=== PATIENT | male | born 1970 | race Asian ===

== ENCOUNTER 2017-03-31 07:51 | Inpatient (IN) | payer MEDICAID, OTHER ==
[~2017-03-31] VITALS: Ht 170.2 cm; Wt 71.0 kg
[~2017-03-31 07:51] MED LIST: RISP.5 PO
[2017-03-31 08:29] LABS: HEMATOCRIT 53.4 % (41-53); HEMOGLOBIN 18.1 g/dL (13.5-17.5); LYMPHOCYTES # (AUTO) 1.6 K/uL (1.0-4.8); LYMPHOCYTES % (AUTO) 9.3 % (22.0-44.0); MEAN CORPUSCULAR HEMOGLOBIN 30.8 pg (26.0-34.0); MEAN CORPUSCULAR VOLUME 91 fL (80-100); MONOCYTES # (AUTO) 0.6 K/uL (0.1-1.0); MONOCYTES % (AUTO) 3.7 % (2.0-9.0); NEUTROPHILS # (AUTO) 14.7 K/uL (1.8-7.7); PLATELET COUNT (AUTO) 276 K/uL (150-450); RED BLOOD CELL COUNT(AUTO) 5.88 MIL/uL (4.50-5.90); RED CELL DISTRIBUTION WIDTH 13.7 % (11.5-14.5); WHITE BLOOD COUNT (AUTO) 17.1 K/uL (4.5-11.0)
[2017-03-31 08:41] LABS: ANION GAP 13 mmol/L (8-16); CALCIUM, TOTAL 9.5 mg/dL (8.8-10.5); CARBON DIOXIDE 27 mmol/L (22-29); CHLORIDE 97 mmol/L (98-107); CREATININE 1.97 mg/dL (0.60-1.30); GLOMERULAR FILTR. RATE CALC 37 mL/min (>60); POTASSIUM 3.2 mmol/L (3.5-5.1); SODIUM SERUM 137 mmol/L (136-145); UREA NITROGEN, BLOOD 13 mg/dL (7-18)
[2017-03-31 08:47] LABS: ALANINE AMINOTRANSFERASE 56 U/L (12-78); ALBUMIN 4.5 g/dL (3.4-5.0); ASPARTATE AMINOTRANSFERASE 100 U/L (15-37); TOTAL PROTEIN, SERUM 8.2 g/dL (6.4-8.2)
[2017-03-31] MEDS ORDERED: HydrOXYzine PAMOATE 50 MG CAPSULE PO ONE (09:15)
[2017-03-31] MEDS ORDERED: LORazepam 2 MG TABLET PO ONE (11:30)
[2017-03-31] MEDS ORDERED: ACETAMINOPHEN 325 MG TABLET PO ONE (11:30)
[2017-03-31] MEDS ORDERED: ZOLPIDEM TARTRATE 10 MG TABLET PO PRN (12:00)
[2017-03-31 14:03] VITALS: BP 103/67
[2017-03-31] MEDS ORDERED: HALOPERIDOL LACTATE 5 MG/ML VIAL ONE (19:58)
[2017-03-31] MEDS ORDERED: DiphenhydrAMINE HCL 50 MG/ML VIAL ONE (19:58)
[2017-03-31] MEDS ORDERED: LORazepam 2 MG/ML VIAL ONE (19:58)
[2017-03-31] MEDS ORDERED: LORazepam 2 MG/ML VIAL IM ONE (20:00)
[2017-03-31] MEDS ORDERED: DiphenhydrAMINE HCL 50 MG/ML VIAL IM ONE (20:00)
[2017-03-31] MEDS ORDERED: HALOPERIDOL LACTATE 5 MG/ML VIAL IM ONE (20:00)
[2017-03-31] MEDS: RisperiDONE 0.5 MG TABLET PO SCH (21:00)
[2017-04-01] MEDS: HALOPERIDOL 5 MG TABLET PO PRN ×2 (08:08→12:25)
[2017-04-01] MEDS: RisperiDONE 0.5 MG TABLET PO SCH (08:08)
[2017-04-01] MEDS: LORazepam 2 MG TABLET PO PRN ×2 (08:08→12:25)
[2017-04-01] MEDS ORDERED: POTASSIUM CHLORIDE 20 MEQ ER TABLET PO ONE (12:15)
[2017-04-01 13:17] VITALS: BP 129/76
[2017-04-01] MEDS: RisperiDONE 1 MG TABLET PO SCH (16:23)
[2017-04-01] MEDS ORDERED: RisperiDONE 0.5 MG TABLET PO SCH (17:00)
[2017-04-01 17:49] VITALS: BP 131/76
[2017-04-02] MEDS: RisperiDONE 1 MG TABLET PO SCH ×2 (08:35→16:16)
[2017-04-02 09:39] VITALS: BP 132/78
[2017-04-02 16:38] VITALS: BP 133/98
[2017-04-02] MEDS ORDERED: BENZOCAINE 10% 7 GM GEL TP PRN (18:30)
[2017-04-03] MEDS: RisperiDONE 1 MG TABLET PO SCH ×2 (08:23→16:19)
[2017-04-03 10:53] VITALS: BP 116/79
[2017-04-03 16:34] VITALS: BP 132/60
[2017-04-04 03:38] VITALS: BP 130/72
[2017-04-04] MEDS: LORazepam 2 MG TABLET PO PRN (03:38)
[2017-04-04] MEDS: RisperiDONE 1 MG TABLET PO SCH (08:09)
[2017-04-04 08:10] VITALS: BP 133/77
[2017-04-04] MEDS ORDERED: RISP1 PO (13:37)
== END 2017-04-04 14:50 | disposition home or self-care (01) | DRG 751 ==
LOC: EMS 07:54 → 3EI 12:33 → 3EC 21:05
PROVIDERS: ADMIT Psychiatry & Neurology Psychiatry; ATTEND Psychiatry & Neurology Psychiatry
DX: F29 Unspecified psychosis not due to a substance or known physiological condition (principal); F15.20 Other stimulant dependence, uncomplicated; Z59.0 Homelessness; S05.11XA Contusion of eyeball and orbital tissues, right eye, initial encounter; X83.8XXA Intentional self-harm by other specified means, initial encounter; Y92.89 Other specified places as the place of occurrence of the external cause; D72.829 Elevated white blood cell count, unspecified; R00.0 Tachycardia, unspecified; N28.9 Disorder of kidney and ureter, unspecified
CPT/HCPCS: 93005; 99285; G0480; J1200; J1630; J2060

== ENCOUNTER 2017-06-21 12:16 | Emergency (ER) | payer MEDICAID, OTHER ==
[~2017-06-21] VITALS: Ht 170.2 cm; Wt 76.4 kg
[~2017-06-21 12:16] MED LIST changes: -RISP.5 PO; +RISP1 PO
[2017-06-21 14:00] LABS: BASOPHILS % (AUTO) 0.8 % (0.0-2.0); EOSINOPHILS % (AUTO) 1.7 % (1.0-6.0); HEMATOCRIT 49.6 % (41-53); HEMOGLOBIN 16.8 g/dL (13.5-17.5); LYMPHOCYTES # (AUTO) 2.2 K/uL (1.0-4.8); LYMPHOCYTES % (AUTO) 24.9 % (22.0-44.0); MEAN CORPUSCULAR HEMOGLOBIN 31.4 pg (26.0-34.0); MEAN CORPUSCULAR HGB CONC 33.9 G/dL (31.0-37.0); MEAN CORPUSCULAR VOLUME 93 fL (80-100); MONOCYTES # (AUTO) 0.7 K/uL (0.1-1.0); MONOCYTES % (AUTO) 8.4 % (2.0-9.0); NEUTROPHILS # (AUTO) 5.6 K/uL (1.8-7.7); NEUTROPHILS % (AUTO) 64.2 % (40.0-70.0); PLATELET COUNT (AUTO) 245 K/uL (150-450); RED BLOOD CELL COUNT(AUTO) 5.35 MIL/uL (4.50-5.90); RED CELL DISTRIBUTION WIDTH 13.5 % (11.5-14.5); WHITE BLOOD COUNT (AUTO) 8.8 K/uL (4.5-11.0)
[2017-06-21 14:08] LABS: ANION GAP 9 mmol/L (8-16); CALCIUM, TOTAL 9.2 mg/dL (8.8-10.5); CARBON DIOXIDE 29 mmol/L (22-29); CHLORIDE 102 mmol/L (98-107); CREATININE 0.94 mg/dL (0.60-1.30); GLOMERULAR FILTR. RATE CALC > 60 mL/min (>60); POTASSIUM 4.1 mmol/L (3.5-5.1); SODIUM SERUM 140 mmol/L (136-145); UREA NITROGEN, BLOOD 5 mg/dL (7-18)
[2017-06-21 14:15] LABS: ALANINE AMINOTRANSFERASE 98 U/L (12-78); ALBUMIN 3.7 g/dL (3.4-5.0); ASPARTATE AMINOTRANSFERASE 105 U/L (15-37); BILIRUBIN,TOTAL 1.3 mg/dL (0.1-1.0); TOTAL PROTEIN, SERUM 7.1 g/dL (6.4-8.2)
[2017-06-21 14:56] VITALS: BP 119/88
== END 2017-06-21 14:57 | disposition home or self-care (01) ==
LOC: EMS 12:18
DX: F20.9 Schizophrenia, unspecified (principal); F17.210 Nicotine dependence, cigarettes, uncomplicated; F32.9 Major depressive disorder, single episode, unspecified; Z86.59 Personal history of other mental and behavioral disorders
CPT/HCPCS: 36415; 80053; 80307; 85025; 99284; 99406; G0480

== ENCOUNTER 2017-07-10 10:16 | Emergency (ER) | payer OTHER ==
[~2017-07-10] VITALS: Ht 170.2 cm; Wt 75.0 kg
[2017-07-10] MEDS ORDERED: LISI-622 PO (10:28)
[2017-07-10] MEDS ORDERED: QUET300T18 PO (10:28)
[2017-07-10] MEDS ORDERED: [UNRECOGNIZED DRUG - OTHER] PO (10:28)
[2017-07-10] MEDS ORDERED: antidepressant PO (10:28)
[2017-07-10 10:47] LABS: BASOPHILS % (AUTO) 0.1 % (0.0-2.0); EOSINOPHILS % (AUTO) 3.8 % (1.0-6.0); HEMATOCRIT 47.2 % (41-53); HEMOGLOBIN 16.3 g/dL (13.5-17.5); LYMPHOCYTES # (AUTO) 2.6 K/uL (1.0-4.8); LYMPHOCYTES % (AUTO) 27.9 % (22.0-44.0); MEAN CORPUSCULAR HEMOGLOBIN 31.7 pg (26.0-34.0); MEAN CORPUSCULAR HGB CONC 34.6 G/dL (31.0-37.0); MEAN CORPUSCULAR VOLUME 92 fL (80-100); MONOCYTES # (AUTO) 0.5 K/uL (0.1-1.0); MONOCYTES % (AUTO) 5.6 % (2.0-9.0); NEUTROPHILS # (AUTO) 5.9 K/uL (1.8-7.7); NEUTROPHILS % (AUTO) 62.6 % (40.0-70.0); PLATELET COUNT (AUTO) 317 K/uL (150-450); RED BLOOD CELL COUNT(AUTO) 5.16 MIL/uL (4.50-5.90); RED CELL DISTRIBUTION WIDTH 13.2 % (11.5-14.5); WHITE BLOOD COUNT (AUTO) 9.5 K/uL (4.5-11.0)
[2017-07-10 10:53] LABS: ANION GAP 16 mmol/L (8-16); CALCIUM, TOTAL 8.6 mg/dL (8.8-10.5); CARBON DIOXIDE 21 mmol/L (22-29); CHLORIDE 100 mmol/L (98-107); CREATININE 1.09 mg/dL (0.60-1.30); GLOMERULAR FILTR. RATE CALC > 60 mL/min (>60); SODIUM SERUM 137 mmol/L (136-145); UREA NITROGEN, BLOOD 9 mg/dL (7-18)
[2017-07-10 10:59] LABS: ALBUMIN 3.5 g/dL (3.4-5.0); BILIRUBIN,TOTAL 0.8 mg/dL (0.1-1.0); TOTAL PROTEIN, SERUM 7.1 g/dL (6.4-8.2)
[2017-07-10] MEDS ORDERED: DONNATAL/LIDOCAINE/MAALOX 55 ML BOTTLE PO ONE (11:00)
[2017-07-10 11:15] LABS: ALANINE AMINOTRANSFERASE 38 U/L (12-78); ASPARTATE AMINOTRANSFERASE 67 U/L (15-37)
[2017-07-10 12:29] VITALS: BP 135/84
== END 2017-07-10 12:46 | disposition home or self-care (01) ==
LOC: EMS 10:17
DX: R10.13 Epigastric pain (principal); F17.210 Nicotine dependence, cigarettes, uncomplicated; F15.10 Other stimulant abuse, uncomplicated; F10.10 Alcohol abuse, uncomplicated
CPT/HCPCS: 93005; 99285

== ENCOUNTER 2017-09-28 16:44 | Emergency (ER) | payer OTHER ==
[~2017-09-28] VITALS: Ht 170.2 cm; Wt 72.7 kg
[~2017-09-28 16:44] MED LIST changes: +LISI-622 PO; +QUET300T18 PO; -RISP1 PO; +[UNRECOGNIZED DRUG - OTHER] PO; +antidepressant PO
[2017-09-28 18:14] LABS: BASOPHILS # (AUTO) 0.12 K/uL (0.00-0.20); BASOPHILS % (AUTO) 1.2 % (0.0-2.0); EOSINOPHILS # (AUTO) 0.42 K/uL (0.00-0.70); EOSINOPHILS % (AUTO) 4.15 % (1.0-6.0); HEMATOCRIT 49.9 % (41-53); HEMOGLOBIN 16.9 g/dL (13.5-17.5); LYMPHOCYTES # (AUTO) 3.3 K/uL (1.0-4.8); LYMPHOCYTES % (AUTO) 31.8 % (22.0-44.0); MEAN CORPUSCULAR HEMOGLOBIN 32.5 pg (26.0-34.0); MEAN CORPUSCULAR HGB CONC 33.9 G/dL (31.0-37.0); MEAN CORPUSCULAR VOLUME 96 fL (80-100); MONOCYTES % (AUTO) 9.6 % (2.0-9.0); NEUTROPHILS # (AUTO) 5.5 K/uL (1.8-7.7); NEUTROPHILS % (AUTO) 53.4 % (40.0-70.0); PLATELET COUNT (AUTO) 337 K/uL (150-450); RED BLOOD CELL COUNT(AUTO) 5.21 MIL/uL (4.50-5.90); RED CELL DISTRIBUTION WIDTH 13.2 % (11.5-14.5); WHITE BLOOD COUNT (AUTO) 10.2 K/uL (4.5-11.0)
[2017-09-28 18:21] LABS: ANION GAP 10 mmol/L (8-16); CALCIUM, TOTAL 8.8 mg/dL (8.8-10.5); CARBON DIOXIDE 27 mmol/L (22-29); CHLORIDE 100 mmol/L (98-107); GLOMERULAR FILTR. RATE CALC > 60 mL/min (>60); POTASSIUM 4.2 mmol/L (3.5-5.1); SODIUM SERUM 137 mmol/L (136-145); UREA NITROGEN, BLOOD 15 mg/dL (7-18)
[2017-09-28 18:27] LABS: ALANINE AMINOTRANSFERASE 86 U/L (12-78); ALBUMIN 3.6 g/dL (3.4-5.0); ASPARTATE AMINOTRANSFERASE 63 U/L (15-37); BILIRUBIN,TOTAL 1.8 mg/dL (0.1-1.0); TOTAL PROTEIN, SERUM 7.1 g/dL (6.4-8.2)
[2017-09-28] MEDS ORDERED: FAMOTIDINE 20 MG TABLET PO ONE (20:00)
[2017-09-28 21:25] VITALS: BP 141/95
== END 2017-09-28 21:30 | disposition home or self-care (01) ==
LOC: EMS 16:47
DX: K29.70 Gastritis, unspecified, without bleeding (principal); R07.89 Other chest pain; R12 Heartburn; F17.210 Nicotine dependence, cigarettes, uncomplicated; F19.90 Other psychoactive substance use, unspecified, uncomplicated
CPT/HCPCS: 93005; 99285

== ENCOUNTER 2017-10-20 04:44 | Emergency (ER) | payer OTHER ==
[~2017-10-20] VITALS: Ht 172.7 cm; Wt 72.0 kg
[2017-10-20 06:57] LABS: BASOPHILS # (AUTO) 0.05 K/uL (0.00-0.20); BASOPHILS % (AUTO) 0.5 % (0.0-2.0); EOSINOPHILS # (AUTO) 0.42 K/uL (0.00-0.70); EOSINOPHILS % (AUTO) 4.54 % (1.0-6.0); HEMATOCRIT 46.6 % (41-53); HEMOGLOBIN 15.9 g/dL (13.5-17.5); LYMPHOCYTES # (AUTO) 2.6 K/uL (1.0-4.8); LYMPHOCYTES % (AUTO) 28.5 % (22.0-44.0); MEAN CORPUSCULAR HEMOGLOBIN 32.7 pg (26.0-34.0); MEAN CORPUSCULAR VOLUME 96 fL (80-100); MONOCYTES # (AUTO) 0.8 K/uL (0.1-1.0); MONOCYTES % (AUTO) 8.6 % (2.0-9.0); NEUTROPHILS # (AUTO) 5.3 K/uL (1.8-7.7); NEUTROPHILS % (AUTO) 57.8 % (40.0-70.0); PLATELET COUNT (AUTO) 301 K/uL (150-450); RED BLOOD CELL COUNT(AUTO) 4.85 MIL/uL (4.50-5.90); RED CELL DISTRIBUTION WIDTH 13.4 % (11.5-14.5)
[2017-10-20 07:01] LABS: ANION GAP 17 mmol/L (8-16); CALCIUM, TOTAL 8.4 mg/dL (8.8-10.5); CARBON DIOXIDE 19 mmol/L (22-29); CHLORIDE 99 mmol/L (98-107); GLOMERULAR FILTR. RATE CALC > 60 mL/min (>60); GLUCOSE,RANDOM 143 mg/dL (70-110); POTASSIUM 4.3 mmol/L (3.5-5.1); SODIUM SERUM 135 mmol/L (136-145); UREA NITROGEN, BLOOD 11 mg/dL (7-18)
[2017-10-20 07:07] LABS: ALANINE AMINOTRANSFERASE 48 U/L (12-78); ALBUMIN 3.4 g/dL (3.4-5.0); ALKALINE PHOSPHATASE 111 U/L (46-116); ASPARTATE AMINOTRANSFERASE 51 U/L (15-37); BILIRUBIN,TOTAL 0.6 mg/dL (0.1-1.0); LIPASE 397 U/L (73-393); TOTAL PROTEIN, SERUM 6.8 g/dL (6.4-8.2)
[2017-10-20 07:21] VITALS: BP 136/85
== END 2017-10-20 07:51 | disposition home or self-care (01) ==
LOC: EMS 04:45
DX: R07.89 Other chest pain (principal); R74.8 Abnormal levels of other serum enzymes; F17.210 Nicotine dependence, cigarettes, uncomplicated; F15.90 Other stimulant use, unspecified, uncomplicated
CPT/HCPCS: 93005; 99285

== ENCOUNTER 2017-11-01 13:49 | Emergency (ER) | payer OTHER ==
[~2017-11-01] VITALS: Ht 170.2 cm; Wt 75.0 kg
[2017-11-01] MEDS ORDERED: BLOOD PRESSURE PO (14:19)
[2017-11-01 15:23] VITALS: BP 143/84
== END 2017-11-01 16:27 | disposition home or self-care (01) ==
LOC: EMS 13:54
DX: Z76.0 Encounter for issue of repeat prescription (principal); F17.210 Nicotine dependence, cigarettes, uncomplicated; F19.90 Other psychoactive substance use, unspecified, uncomplicated
CPT/HCPCS: 99283

== ENCOUNTER 2018-01-15 22:46 | Emergency (ER) | payer OTHER ==
[~2018-01-15] VITALS: Ht 170.2 cm; Wt 73.8 kg
[~2018-01-15 22:46] MED LIST changes: +FAMO40TA7 PO; -QUET300T18 PO; +RISP1 PO; -[UNRECOGNIZED DRUG - OTHER] PO; -antidepressant PO
[2018-01-15 23:29] LABS: BASOPHILS % (AUTO) 1.1 % (0.0-2.0); EOSINOPHILS % (AUTO) 6.9 % (1.0-6.0); HEMATOCRIT 45.3 % (41-53); HEMOGLOBIN 15.4 g/dL (13.5-17.5); LYMPHOCYTES # (AUTO) 3.3 K/uL (1.0-4.8); MEAN CORPUSCULAR HEMOGLOBIN 31.9 pg (26.0-34.0); MEAN CORPUSCULAR VOLUME 94 fL (80-100); MONOCYTES # (AUTO) 0.9 K/uL (0.1-1.0); NEUTROPHILS # (AUTO) 4.2 K/uL (1.8-7.7); PLATELET COUNT (AUTO) 347 K/uL (150-450); RED BLOOD CELL COUNT(AUTO) 4.82 MIL/uL (4.50-5.90); RED CELL DISTRIBUTION WIDTH 13.5 % (11.5-14.5)
[2018-01-15 23:44] LABS: ANION GAP 10 mmol/L (8-16); CALCIUM, TOTAL 8.7 mg/dL (8.8-10.5); CARBON DIOXIDE 26 mmol/L (22-29); CHLORIDE 107 mmol/L (98-107); GLOMERULAR FILTR. RATE CALC > 60 mL/min (>60); GLUCOSE,RANDOM 103 mg/dL (70-110); POTASSIUM 3.8 mmol/L (3.5-5.1); SODIUM SERUM 143 mmol/L (136-145); UREA NITROGEN, BLOOD 9 mg/dL (7-18)
[2018-01-15 23:52] LABS: ALANINE AMINOTRANSFERASE 45 U/L (12-78); ALBUMIN 3.4 g/dL (3.4-5.0); ALKALINE PHOSPHATASE 107 U/L (46-116); ASPARTATE AMINOTRANSFERASE 44 U/L (15-37); BILIRUBIN,TOTAL 0.3 mg/dL (0.1-1.0); TOTAL PROTEIN, SERUM 6.7 g/dL (6.4-8.2)
[2018-01-16 02:03] VITALS: BP 120/82
== END 2018-01-16 02:29 | disposition left against medical advice (07) ==
LOC: EMS 22:47
DX: R07.2 Precordial pain (principal); F17.210 Nicotine dependence, cigarettes, uncomplicated; F19.90 Other psychoactive substance use, unspecified, uncomplicated
CPT/HCPCS: 93005; 99285

== ENCOUNTER 2018-12-29 22:31 | Emergency (ER) | payer OTHER ==
[~2018-12-29] VITALS: Ht 175.3 cm; Wt 72.7 kg
[2018-12-29 22:53] VITALS: BP 166/102
== END 2018-12-29 23:00 | disposition left against medical advice (07) ==
LOC: EMS 22:32
DX: F22 Delusional disorders (principal); F32.9 Major depressive disorder, single episode, unspecified; F20.9 Schizophrenia, unspecified; F17.210 Nicotine dependence, cigarettes, uncomplicated; F19.90 Other psychoactive substance use, unspecified, uncomplicated; Z53.21 Procedure and treatment not carried out due to patient leaving prior to being seen by health care provider

== ENCOUNTER 2019-01-09 02:40 | Emergency (ER) | payer OTHER | END 2019-01-09 02:45 | disposition left against medical advice (07) | LOC: EMS 02:40 | DX: R06.02 Shortness of breath (principal); Z53.21 Procedure and treatment not carried out due to patient leaving prior to being seen by health care provider ==

== ENCOUNTER 2019-01-15 11:23 | Emergency (ER) | payer OTHER ==
[~2019-01-15] VITALS: Ht 175.3 cm; Wt 68.2 kg
[2019-01-15 12:08] LABS: BASOPHILS % (AUTO) 1.1 % (0.0-2.0); EOSINOPHILS % (AUTO) 0.7 % (1.0-6.0); HEMATOCRIT 44.1 % (41-53); HEMOGLOBIN 14.7 g/dL (13.5-17.5); LYMPHOCYTES # (AUTO) 1.3 K/uL (1.0-4.8); LYMPHOCYTES % (AUTO) 20.5 % (22.0-44.0); MEAN CORPUSCULAR HEMOGLOBIN 35.1 pg (26.0-34.0); MEAN CORPUSCULAR HGB CONC 33.3 G/dL (31.0-37.0); MEAN CORPUSCULAR VOLUME 105 fL (80-100); MONOCYTES # (AUTO) 0.7 K/uL (0.1-1.0); MONOCYTES % (AUTO) 11.4 % (2.0-9.0); NEUTROPHILS # (AUTO) 4.2 K/uL (1.8-7.7); NEUTROPHILS % (AUTO) 66.3 % (40.0-70.0); PLATELET COUNT (AUTO) 170 K/uL (150-450); RED BLOOD CELL COUNT(AUTO) 4.19 MIL/uL (4.50-5.90); RED CELL DISTRIBUTION WIDTH 14.8 % (11.5-14.5)
[2019-01-15 12:16] LABS: ANION GAP 13 mmol/L (8-16); CALCIUM, TOTAL 8.5 mg/dL (8.8-10.5); CARBON DIOXIDE 26 mmol/L (22-29); CHLORIDE 98 mmol/L (98-107); CREATININE 0.66 mg/dL (0.60-1.30); GLOMERULAR FILTR. RATE CALC > 60 mL/min (>60); GLUCOSE,RANDOM 104 mg/dL (70-110); POTASSIUM 3.3 mmol/L (3.5-5.1); SODIUM SERUM 137 mmol/L (136-145); UREA NITROGEN, BLOOD 5 mg/dL (7-18)
[2019-01-15 12:19] LABS: PROTHROMBIN TIME 10.6 SEC (9.4-11.6)
[2019-01-15 12:22] LABS: ALANINE AMINOTRANSFERASE 122 U/L (12-78); ALKALINE PHOSPHATASE 269 U/L (46-116); ASPARTATE AMINOTRANSFERASE 336 U/L (15-37); BILIRUBIN,TOTAL 1.4 mg/dL (0.1-1.0); TOTAL PROTEIN, SERUM 6.7 g/dL (6.4-8.2)
[2019-01-15 12:25] LABS: B-TYPE NATRIURETIC PEPTIDE 15 pg/mL (0-100)
[2019-01-15 13:42] VITALS: BP 137/72
[2019-01-15 15:19] LABS: APPEARANCE,URINE CLEAR (CLEAR); GLUCOSE, URINE (UA) NEGATIVE (NEGATIVE); KETONES,URINE TRACE mg/dL (NEGATIVE); LEUKOCYTE ESTERASE ,URINE NEGATIVE (NEGATIVE); NITRATE,URINE NEGATIVE (NEGATIVE); OCCULT BLOOD,URINE NEGATIVE (NEGATIVE); PROTEIN,URINE POS 1+ (NEGATIVE)
[2019-01-15 15:24] LABS: AMPHET/METH SCREEN,URINE NEGATIVE (NEGATIVE); BARBITURATE SCREEN, URINE NEGATIVE (NEGATIVE); BENZODIAZEPINES SCREEN,URINE NEGATIVE (NEGATIVE); CANNABINOID SCREEN,URINE NEGATIVE (NEGATIVE); COCAINE SCREEN,URINE NEGATIVE (NEGATIVE); METHADONE SCREEN, URINE NEGATIVE (NEGATIVE); OPIATE SCREEN,URINE NEGATIVE (NEGATIVE)
[2019-01-15 15:25] LABS: PHENCYCLIDINE SCREEN,URINE NEGATIVE (NEGATIVE)
[2019-01-15 15:29] LABS: BILIRUBIN,URINE PRELIM. POSITIVE (NEGATIVE)
[2019-01-15 15:39] LABS: BACTERIA,URINE None Seen /HPF (None Seen); CALCIUM OXALATE CRYSTALS,UR Many /LPF (None Seen); RBC,URINE None Seen /HPF (0-2); SQUAMOUS EPITHELIAL CELL,UR Rare /LPF (None Seen); WBC,URINE None Seen /HPF (0-5)
== END 2019-01-15 13:43 | disposition left against medical advice (07) ==
LOC: EMS 11:23
DX: K74.60 Unspecified cirrhosis of liver (principal); F10.20 Alcohol dependence, uncomplicated; R07.89 Other chest pain; R06.02 Shortness of breath; M79.89 Other specified soft tissue disorders; F32.9 Major depressive disorder, single episode, unspecified; F20.9 Schizophrenia, unspecified; F17.210 Nicotine dependence, cigarettes, uncomplicated; F15.90 Other stimulant use, unspecified, uncomplicated; F19.10 Other psychoactive substance abuse, uncomplicated; Z79.899 Other long term (current) drug therapy; Y90.6 Blood alcohol level of 120-199 mg/100 ml
CPT/HCPCS: 36415; 71045; 80053; 80307; 81001; 83880; 84484; 85025; 85610; 93005; 99285; G0480

== ENCOUNTER 2019-02-16 14:44 | Inpatient (IN) | payer OTHER ==
[~2019-02-16] VITALS: Ht 170.2 cm; Wt 68.0 kg
[~2019-02-16 14:44] MED LIST changes: +FOLI1TAB15 PO; +MULT-959 PO; +SERT50TA12 PO; +SPIR25 PO
[2019-02-16 15:25] LABS: BASOPHILS % (AUTO) 1.2 % (0.0-2.0); EOSINOPHILS % (AUTO) 5.8 % (1.0-6.0); HEMATOCRIT 46.6 % (41-53); HEMOGLOBIN 15.6 g/dL (13.5-17.5); LYMPHOCYTES # (AUTO) 2.3 K/uL (1.0-4.8); LYMPHOCYTES % (AUTO) 32.8 % (22.0-44.0); MEAN CORPUSCULAR HGB CONC 33.5 G/dL (31.0-37.0); MEAN CORPUSCULAR VOLUME 101 fL (80-100); MONOCYTES # (AUTO) 0.6 K/uL (0.1-1.0); MONOCYTES % (AUTO) 8.7 % (2.0-9.0); NEUTROPHILS # (AUTO) 3.6 K/uL (1.8-7.7); NEUTROPHILS % (AUTO) 51.5 % (40.0-70.0); PLATELET COUNT (AUTO) 279 K/uL (150-450); RED BLOOD CELL COUNT(AUTO) 4.59 MIL/uL (4.50-5.90); RED CELL DISTRIBUTION WIDTH 14.2 % (11.5-14.5)
[2019-02-16 15:50] LABS: ANION GAP 12 mmol/L (8-16); CALCIUM, TOTAL 9.2 mg/dL (8.8-10.5); CARBON DIOXIDE 26 mmol/L (22-29); CHLORIDE 104 mmol/L (98-107); CREATININE 0.82 mg/dL (0.60-1.30); GLOMERULAR FILTR. RATE CALC > 60 mL/min (>60); GLUCOSE,RANDOM 56 mg/dL (70-110); POTASSIUM 3.4 mmol/L (3.5-5.1); SODIUM SERUM 142 mmol/L (136-145); UREA NITROGEN, BLOOD 6 mg/dL (7-18)
[2019-02-16 15:53] LABS: SALICYLATE 7.9 mg/dL (2.8-20.0)
[2019-02-16 15:55] LABS: AMPHET/METH SCREEN,URINE NEGATIVE (NEGATIVE); BARBITURATE SCREEN, URINE NEGATIVE (NEGATIVE); BENZODIAZEPINES SCREEN,URINE NEGATIVE (NEGATIVE); CANNABINOID SCREEN,URINE NEGATIVE (NEGATIVE); COCAINE SCREEN,URINE NEGATIVE (NEGATIVE); METHADONE SCREEN, URINE NEGATIVE (NEGATIVE); OPIATE SCREEN,URINE NEGATIVE (NEGATIVE)
[2019-02-16 15:56] LABS: ALANINE AMINOTRANSFERASE 22 U/L (12-78); ALBUMIN 3.8 g/dL (3.4-5.0); ALKALINE PHOSPHATASE 62 U/L (46-116); ASPARTATE AMINOTRANSFERASE 29 U/L (15-37); BILIRUBIN,TOTAL 0.4 mg/dL (0.1-1.0); TOTAL PROTEIN, SERUM 7.2 g/dL (6.4-8.2)
[2019-02-16 15:56] LABS: PHENCYCLIDINE SCREEN,URINE NEGATIVE (NEGATIVE)
[2019-02-16] MEDS ORDERED: CHARCOAL/SORBITOL 50 GM/240 ML SUSPENSION PO ONE (16:00)
[2019-02-16 16:08] LABS: ACETAMINOPHEN < 2 mcg/mL (10-30)
[2019-02-16 16:27] LABS: LIPASE 904 U/L (73-393)
[2019-02-16] MEDS ORDERED: ONDANSETRON HCL 4 MG/2 ML VIAL IVP PRN (16:45)
[2019-02-16] MEDS ORDERED: ACETAMINOPHEN 325 MG TABLET PO PRN (16:45)
[2019-02-16] MEDS ORDERED: MAGNESIUM OXIDE 400 MG TABLET PO PRN (17:00)
[2019-02-16] MEDS ORDERED: MAGNESIUM SULFATE 2 GM/WATER 50 ML IV PRN (17:00)
[2019-02-16] MEDS ORDERED: POTASSIUM CHLORIDE 20 MEQ ER TABLET PO PRN (17:00)
[2019-02-16] MEDS ORDERED: MAGNESIUM SULFATE 4 GM/WATER 100 ML IV PRN (17:00)
[2019-02-16] MEDS: PANTOPRAZOLE SODIUM 40 MG/VIAL IVP SCH (17:13)
[2019-02-16] MEDS: DEXTROSE 5%-0.45% SODIUM CHL 1,000 ML IV SCH (17:25)
[2019-02-16 20:23] VITALS: BP 109/53
[2019-02-16] MEDS: DOCUSATE SODIUM 100 MG CAPSULE PO SCH (21:00)
[2019-02-16] MEDS ORDERED: SODIUM CHLORIDE 0.9% 250 ML IV ONE (21:56)
[2019-02-16] MEDS: POTASSIUM CHL 10 MEQ/WATER 50 ML IV PRN (22:23)
[2019-02-16 23:20] VITALS: BP 121/77
[2019-02-17] MEDS: POTASSIUM CHL 10 MEQ/WATER 50 ML IV PRN ×2 (00:35→06:14)
[2019-02-17 04:29] VITALS: BP 131/75
[2019-02-17] MEDS: DEXTROSE 5%-0.45% SODIUM CHL 1,000 ML IV SCH ×2 (06:14→21:12)
[2019-02-17 07:08] LABS: ALANINE AMINOTRANSFERASE 21 U/L (12-78); ALBUMIN 3.5 g/dL (3.4-5.0); ALKALINE PHOSPHATASE 55 U/L (46-116); ANION GAP 7 mmol/L (8-16); ASPARTATE AMINOTRANSFERASE 26 U/L (15-37); BILIRUBIN,TOTAL 0.8 mg/dL (0.1-1.0); CALCIUM, TOTAL 8.7 mg/dL (8.8-10.5); CARBON DIOXIDE 27 mmol/L (22-29); CHLORIDE 106 mmol/L (98-107); CREATININE 0.71 mg/dL (0.60-1.30); GLOMERULAR FILTR. RATE CALC > 60 mL/min (>60); GLUCOSE,RANDOM 82 mg/dL (70-110); LIPASE 446 U/L (73-393); POTASSIUM 3.8 mmol/L (3.5-5.1); SODIUM SERUM 140 mmol/L (136-145); TOTAL PROTEIN, SERUM 6.9 g/dL (6.4-8.2); UREA NITROGEN, BLOOD 6 mg/dL (7-18)
[2019-02-17 07:37] VITALS: BP 134/92
[2019-02-17 08:10] LABS: GLUCOMETER DEV NAME(LOC) 5S.1; GLUCOSE,POINT OF CARE 77 MG/DL (70-110)
[2019-02-17] MEDS: DOCUSATE SODIUM 100 MG CAPSULE PO SCH ×2 (09:06→21:11)
[2019-02-17] MEDS: PANTOPRAZOLE SODIUM 40 MG/VIAL IVP SCH (09:06)
[2019-02-17 11:10] VITALS: BP 137/94
[2019-02-17] MEDS ORDERED: SODIUM CHLORIDE 0.9% 250 ML IV ONE (11:31)
[2019-02-17 15:51] VITALS: BP 118/72
[2019-02-17 19:31] VITALS: BP 125/85
[2019-02-17] MEDS: RisperiDONE 1 MG TABLET PO SCH (21:11)
[2019-02-17 23:30] VITALS: BP 122/79
[2019-02-18 04:54] VITALS: BP 110/71
[2019-02-18 07:38] VITALS: BP 146/71
[2019-02-18] MEDS: DEXTROSE 5%-0.45% SODIUM CHL 1,000 ML IV SCH ×2 (08:51→22:18)
[2019-02-18] MEDS: DOCUSATE SODIUM 100 MG CAPSULE PO SCH ×2 (08:51→21:00)
[2019-02-18] MEDS: PANTOPRAZOLE SODIUM 40 MG/VIAL IVP SCH (08:51)
[2019-02-18 11:35] VITALS: BP 118/71
[2019-02-18 15:03] VITALS: BP 119/84
[2019-02-18 19:36] VITALS: BP 135/79
[2019-02-18] MEDS: RisperiDONE 1 MG TABLET PO SCH (21:00)
[2019-02-18 23:12] VITALS: BP 123/79
[2019-02-19 04:00] VITALS: BP 117/74
[2019-02-19] MEDS: DOCUSATE SODIUM 100 MG CAPSULE PO SCH (08:04)
[2019-02-19 08:05] VITALS: BP 124/77
[2019-02-19] MEDS: PANTOPRAZOLE SODIUM 40 MG/VIAL IVP SCH (08:05)
[2019-02-19 12:01] VITALS: BP 127/73
[2019-02-19 16:24] VITALS: BP 121/76
== END 2019-02-19 18:50 | disposition home or self-care (01) | DRG 812 ==
LOC: EMS 14:46 → 5S 18:33
PROVIDERS: ADMIT Internal Medicine; ATTEND Internal Medicine
DX: T43.222A Poisoning by selective serotonin reuptake inhibitors, intentional self-harm, initial encounter (principal); G93.41 Metabolic encephalopathy; K85.20 Alcohol induced acute pancreatitis without necrosis or infection; K70.30 Alcoholic cirrhosis of liver without ascites; F20.9 Schizophrenia, unspecified; F19.10 Other psychoactive substance abuse, uncomplicated; F32.9 Major depressive disorder, single episode, unspecified; F17.210 Nicotine dependence, cigarettes, uncomplicated; F10.129 Alcohol abuse with intoxication, unspecified; Z79.899 Other long term (current) drug therapy; Z91.19 Patient's noncompliance with other medical treatment and regimen; Y92.89 Other specified places as the place of occurrence of the external cause
CPT/HCPCS: 83735; 87081; 93005; 99291; C9113; G0378; G0480; G0481; J3480; J7050

== ENCOUNTER 2019-03-07 18:37 | Emergency (ER) | payer OTHER | END 2019-03-07 19:00 | disposition left against medical advice (07) | LOC: EMS 18:40 | DX: R06.02 Shortness of breath (principal); R53.1 Weakness; Z53.21 Procedure and treatment not carried out due to patient leaving prior to being seen by health care provider ==

== ENCOUNTER 2019-03-08 12:47 | Emergency (ER) | payer OTHER ==
[~2019-03-08] VITALS: Ht 170.2 cm; Wt 68.2 kg
[2019-03-08 13:59] LABS: BASOPHILS % (AUTO) 0.9 % (0.0-2.0); EOSINOPHILS % (AUTO) 2.4 % (1.0-6.0); HEMATOCRIT 47.2 % (41-53); HEMOGLOBIN 15.9 g/dL (13.5-17.5); LYMPHOCYTES # (AUTO) 2.7 K/uL (1.0-4.8); LYMPHOCYTES % (AUTO) 46.9 % (22.0-44.0); MEAN CORPUSCULAR HEMOGLOBIN 33.3 pg (26.0-34.0); MEAN CORPUSCULAR HGB CONC 33.7 G/dL (31.0-37.0); MEAN CORPUSCULAR VOLUME 99 fL (80-100); MONOCYTES # (AUTO) 0.3 K/uL (0.1-1.0); NEUTROPHILS # (AUTO) 2.5 K/uL (1.8-7.7); NEUTROPHILS % (AUTO) 43.8 % (40.0-70.0); PLATELET COUNT (AUTO) 121 K/uL (150-450); RED BLOOD CELL COUNT(AUTO) 4.77 MIL/uL (4.50-5.90); RED CELL DISTRIBUTION WIDTH 13.3 % (11.5-14.5)
[2019-03-08] MEDS ORDERED: THIAMINE HCL 100 MG/ML 2ML VIAL IVP ONE (14:00)
[2019-03-08] MEDS ORDERED: FOLIC ACID 5 MG/ML 10 ML VIAL IVP ONE (14:00)
[2019-03-08 14:20] LABS: ANION GAP 16 mmol/L (8-16); CALCIUM, TOTAL 8.6 mg/dL (8.8-10.5); CARBON DIOXIDE 23 mmol/L (22-29); CHLORIDE 101 mmol/L (98-107); CREATININE 1.11 mg/dL (0.60-1.30); GLOMERULAR FILTR. RATE CALC > 60 mL/min (>60); GLUCOSE,RANDOM 132 mg/dL (70-110); POTASSIUM 3.9 mmol/L (3.5-5.1); SODIUM SERUM 140 mmol/L (136-145); UREA NITROGEN, BLOOD 7 mg/dL (7-18)
[2019-03-08 14:27] LABS: ALANINE AMINOTRANSFERASE 71 U/L (12-78); ALBUMIN 3.7 g/dL (3.4-5.0); ALKALINE PHOSPHATASE 121 U/L (46-116); ASPARTATE AMINOTRANSFERASE 169 U/L (15-37); BILIRUBIN,TOTAL 2.6 mg/dL (0.1-1.0); TOTAL PROTEIN, SERUM 7.2 g/dL (6.4-8.2)
[2019-03-09 11:43] VITALS: BP 145/85
== END 2019-03-08 14:51 | disposition home or self-care (01) ==
LOC: EMS 12:50
DX: F10.229 Alcohol dependence with intoxication, unspecified (principal); F20.9 Schizophrenia, unspecified; F15.90 Other stimulant use, unspecified, uncomplicated; F17.210 Nicotine dependence, cigarettes, uncomplicated; F19.10 Other psychoactive substance abuse, uncomplicated; Z79.899 Other long term (current) drug therapy; Y90.8 Blood alcohol level of 240 mg/100 ml or more
CPT/HCPCS: 36415; 70450; 80053; 85025; 96374; 96375; 99284; G0480; J3411; J3490

== ENCOUNTER 2019-04-09 15:49 | Inpatient (IN) | payer OTHER ==
[~2019-04-09] VITALS: Ht 170.2 cm; Wt 70.1 kg
[2019-04-09 17:05] LABS: EOSINOPHILS % (AUTO) 1.1 % (1.0-6.0); HEMATOCRIT 49.2 % (41-53); HEMOGLOBIN 16.8 g/dL (13.5-17.5); LYMPHOCYTES # (AUTO) 1.8 K/uL (1.0-4.8); MEAN CORPUSCULAR HGB CONC 34.2 G/dL (31.0-37.0); MEAN CORPUSCULAR VOLUME 100 fL (80-100); MONOCYTES # (AUTO) 0.9 K/uL (0.1-1.0); MONOCYTES % (AUTO) 13.3 % (2.0-9.0); NEUTROPHILS # (AUTO) 3.6 K/uL (1.8-7.7); NEUTROPHILS % (AUTO) 55.6 % (40.0-70.0); PLATELET COUNT (AUTO) 172 K/uL (150-450); RED BLOOD CELL COUNT(AUTO) 4.94 MIL/uL (4.50-5.90); RED CELL DISTRIBUTION WIDTH 15.3 % (11.5-14.5)
[2019-04-09 17:36] LABS: ANION GAP 12 mmol/L (8-16); CALCIUM, TOTAL 9.2 mg/dL (8.8-10.5); CARBON DIOXIDE 24 mmol/L (22-29); CHLORIDE 99 mmol/L (98-107); CREATININE 0.82 mg/dL (0.60-1.30); GLOMERULAR FILTR. RATE CALC > 60 mL/min (>60); GLUCOSE,RANDOM 99 mg/dL (70-110); POTASSIUM 3.6 mmol/L (3.5-5.1); SODIUM SERUM 135 mmol/L (136-145); UREA NITROGEN, BLOOD 5 mg/dL (7-18)
[2019-04-09 17:43] LABS: ALANINE AMINOTRANSFERASE 176 U/L (12-78); ALBUMIN 3.6 g/dL (3.4-5.0); ALKALINE PHOSPHATASE 154 U/L (46-116); ASPARTATE AMINOTRANSFERASE 371 U/L (15-37); BILIRUBIN,TOTAL 1.8 mg/dL (0.1-1.0); TOTAL PROTEIN, SERUM 7.1 g/dL (6.4-8.2)
[2019-04-09 17:53] LABS: LIPASE 2510 U/L (73-393)
[2019-04-09 19:00] LABS: PROTHROMBIN TIME 10.6 SEC (9.4-11.6)
[2019-04-09] MEDS ORDERED: ONDANSETRON HCL 4 MG/2 ML VIAL IVP PRN (20:00)
[2019-04-09] MEDS ORDERED: ACETAMINOPHEN 325 MG TABLET PO PRN ×2 (20:00→21:45)
[2019-04-09] MEDS ORDERED: 0.9% SODIUM CHLORIDE 10 ML SYRINGE IVP PRN (20:00)
[2019-04-09 20:29] LABS: APPEARANCE,URINE CLEAR (CLEAR); GLUCOSE, URINE (UA) NEGATIVE (NEGATIVE); KETONES,URINE TRACE mg/dL (NEGATIVE); LEUKOCYTE ESTERASE ,URINE NEGATIVE (NEGATIVE); NITRATE,URINE NEGATIVE (NEGATIVE); OCCULT BLOOD,URINE NEGATIVE (NEGATIVE); PROTEIN,URINE TRACE (NEGATIVE)
[2019-04-09 20:33] LABS: BILIRUBIN,URINE PRELIM. POSITIVE (NEGATIVE)
[2019-04-09 20:44] LABS: BACTERIA,URINE Rare /HPF (None Seen); RBC,URINE 0-2 /HPF (0-2); SQUAMOUS EPITHELIAL CELL,UR Rare /LPF (None Seen); WBC,URINE 0-2 /HPF (0-5)
[2019-04-09 21:03] LABS: AMPHET/METH SCREEN,URINE NEGATIVE (NEGATIVE); BARBITURATE SCREEN, URINE NEGATIVE (NEGATIVE); BENZODIAZEPINES SCREEN,URINE NEGATIVE (NEGATIVE); CANNABINOID SCREEN,URINE NEGATIVE (NEGATIVE); COCAINE SCREEN,URINE NEGATIVE (NEGATIVE); METHADONE SCREEN, URINE NEGATIVE (NEGATIVE); OPIATE SCREEN,URINE NEGATIVE (NEGATIVE)
[2019-04-09 21:12] LABS: PHENCYCLIDINE SCREEN,URINE NEGATIVE (NEGATIVE)
[2019-04-09] MEDS ORDERED: MAGNESIUM HYDROXIDE SUSPENSION 30 ML UDCUP PO PRN (21:45)
[2019-04-09] MEDS ORDERED: ALBUTEROL SULFATE 2.5 MG/0.5 ML NEB SOLUTION NEB PRN (21:45)
[2019-04-09] MEDS ORDERED: [UNRECOGNIZED DRUG - REMARK] IV SCH ×5 (21:45)
[2019-04-09] MEDS ORDERED: HydrALAZINE HCL 20 MG/ML VIAL IVP PRN (21:45)
[2019-04-09] MEDS ORDERED: IPRATROPIUM BROMIDE 0.5 MG/2.5 ML NEB SOLUTION NEB PRN (21:45)
[2019-04-09] MEDS ORDERED: HYDROCODONE/ACETAMINOPHEN 5-325 MG TABLET PO PRN (21:45)
[2019-04-09] MEDS ORDERED: BISACODYL 10 MG RECTAL RECTAL SUPPOSITORY PR PRN (21:45)
[2019-04-09 22:25] VITALS: BP 132/65
[2019-04-09] MEDS: MORPHINE SULFATE 2 MG/ML SYRINGE IVP PRN (22:40)
[2019-04-10] MEDS: FAMOTIDINE 10 MG/ML 2 ML VIAL IVP SCH ×3 (00:25→20:28)
[2019-04-10 04:37] VITALS: BP 144/89
[2019-04-10] MEDS: MORPHINE SULFATE 2 MG/ML SYRINGE IVP PRN (04:50)
[2019-04-10 05:17] LABS: BASOPHILS % (AUTO) 0.7 % (0.0-2.0); EOSINOPHILS % (AUTO) 2.4 % (1.0-6.0); HEMATOCRIT 48.6 % (41-53); HEMOGLOBIN 16.2 g/dL (13.5-17.5); LYMPHOCYTES # (AUTO) 1.5 K/uL (1.0-4.8); LYMPHOCYTES % (AUTO) 28.7 % (22.0-44.0); MEAN CORPUSCULAR HEMOGLOBIN 33.5 pg (26.0-34.0); MEAN CORPUSCULAR HGB CONC 33.4 G/dL (31.0-37.0); MEAN CORPUSCULAR VOLUME 101 fL (80-100); MONOCYTES # (AUTO) 0.7 K/uL (0.1-1.0); MONOCYTES % (AUTO) 13.6 % (2.0-9.0); NEUTROPHILS # (AUTO) 2.9 K/uL (1.8-7.7); NEUTROPHILS % (AUTO) 54.6 % (40.0-70.0); PLATELET COUNT (AUTO) 150 K/uL (150-450); RED BLOOD CELL COUNT(AUTO) 4.84 MIL/uL (4.50-5.90); RED CELL DISTRIBUTION WIDTH 15.3 % (11.5-14.5)
[2019-04-10 05:36] LABS: ALANINE AMINOTRANSFERASE 139 U/L (12-78); ALBUMIN 3.2 g/dL (3.4-5.0); ALKALINE PHOSPHATASE 131 U/L (46-116); AMYLASE 93 U/L (25-115); ANION GAP 9 mmol/L (8-16); ASPARTATE AMINOTRANSFERASE 257 U/L (15-37); BILIRUBIN,TOTAL 2.7 mg/dL (0.1-1.0); CALCIUM, TOTAL 8.8 mg/dL (8.8-10.5); CARBON DIOXIDE 27 mmol/L (22-29); CHLORIDE 101 mmol/L (98-107); CREATININE 0.78 mg/dL (0.60-1.30); GLOMERULAR FILTR. RATE CALC > 60 mL/min (>60); GLUCOSE,RANDOM 104 mg/dL (70-110); LIPASE 1250 U/L (73-393); POTASSIUM 3.6 mmol/L (3.5-5.1); SODIUM SERUM 137 mmol/L (136-145); TOTAL PROTEIN, SERUM 6.2 g/dL (6.4-8.2); UREA NITROGEN, BLOOD 4 mg/dL (7-18)
[2019-04-10] MEDS: ChlordiazePOXIDE HCL 25 MG CAPSULE PO PRN (06:13)
[2019-04-10 07:25] VITALS: BP 147/88
[2019-04-10] MEDS: SERTRALINE HCL 50 MG TABLET PO SCH (07:58)
[2019-04-10 11:17] VITALS: BP 155/82
[2019-04-10] MEDS: SODIUM CHLORIDE 0.9% 1,000 ML IV SCH ×2 (12:03→23:54)
[2019-04-10 15:15] VITALS: BP 153/98
[2019-04-10 19:42] VITALS: BP 157/96
[2019-04-10] MEDS ORDERED: TEMAZEPAM 15 MG CAPSULE PO PRN (21:00)
[2019-04-10 23:58] VITALS: BP 152/90
[2019-04-11 04:44] VITALS: BP 148/101
[2019-04-11 06:35] LABS: ALANINE AMINOTRANSFERASE 119 U/L (12-78); ALBUMIN 3.2 g/dL (3.4-5.0); ALKALINE PHOSPHATASE 124 U/L (46-116); ANION GAP 12 mmol/L (8-16); ASPARTATE AMINOTRANSFERASE 174 U/L (15-37); BILIRUBIN,TOTAL 2.5 mg/dL (0.1-1.0); CALCIUM, TOTAL 8.8 mg/dL (8.8-10.5); CARBON DIOXIDE 23 mmol/L (22-29); CHLORIDE 103 mmol/L (98-107); CREATININE 0.77 mg/dL (0.60-1.30); GLOMERULAR FILTR. RATE CALC > 60 mL/min (>60); GLUCOSE,RANDOM 90 mg/dL (70-110); LIPASE 1197 U/L (73-393); POTASSIUM 3.3 mmol/L (3.5-5.1); SODIUM SERUM 138 mmol/L (136-145); TOTAL PROTEIN, SERUM 6.5 g/dL (6.4-8.2); UREA NITROGEN, BLOOD 4 mg/dL (7-18)
[2019-04-11] MEDS: FAMOTIDINE 10 MG/ML 2 ML VIAL IVP SCH ×2 (07:38→20:25)
[2019-04-11] MEDS: SERTRALINE HCL 50 MG TABLET PO SCH (07:38)
[2019-04-11 08:00] VITALS: BP 139/88
[2019-04-11] MEDS ORDERED: POTASSIUM CHL 10 MEQ/WATER 50 ML IV PRN (10:45)
[2019-04-11] MEDS: AmLODIPine BESYLATE 5 MG TABLET PO SCH (11:27)
[2019-04-11] MEDS: SODIUM CHLORIDE 0.9% 1,000 ML IV SCH ×2 (11:27→20:26)
[2019-04-11] MEDS: POTASSIUM CHLORIDE 20 MEQ ER TABLET PO PRN (11:27)
[2019-04-11 11:33] VITALS: BP 139/80
[2019-04-11 15:30] VITALS: BP 132/81
[2019-04-11] MEDS: ChlordiazePOXIDE HCL 25 MG CAPSULE PO PRN (16:10)
[2019-04-11 20:31] VITALS: BP 138/82
[2019-04-11 23:11] VITALS: BP 140/88
[2019-04-12 03:35] VITALS: BP 145/89
[2019-04-12 06:00] LABS: ALANINE AMINOTRANSFERASE 96 U/L (12-78); ALBUMIN 2.9 g/dL (3.4-5.0); ALKALINE PHOSPHATASE 109 U/L (46-116); ANION GAP 9 mmol/L (8-16); ASPARTATE AMINOTRANSFERASE 111 U/L (15-37); BILIRUBIN,TOTAL 1.7 mg/dL (0.1-1.0); CALCIUM, TOTAL 8.8 mg/dL (8.8-10.5); CARBON DIOXIDE 25 mmol/L (22-29); CHLORIDE 105 mmol/L (98-107); CREATININE 0.82 mg/dL (0.60-1.30); GLOMERULAR FILTR. RATE CALC > 60 mL/min (>60); GLUCOSE,RANDOM 125 mg/dL (70-110); POTASSIUM 3.5 mmol/L (3.5-5.1); SODIUM SERUM 139 mmol/L (136-145); UREA NITROGEN, BLOOD 2 mg/dL (7-18)
[2019-04-12 06:10] LABS: LIPASE 1515 U/L (73-393)
[2019-04-12 07:35] VITALS: BP 138/88
[2019-04-12] MEDS: SERTRALINE HCL 50 MG TABLET PO SCH (08:28)
[2019-04-12] MEDS: AmLODIPine BESYLATE 5 MG TABLET PO SCH (08:28)
[2019-04-12] MEDS: FAMOTIDINE 10 MG/ML 2 ML VIAL IVP SCH ×2 (08:29→20:46)
[2019-04-12 11:30] VITALS: BP 127/86
[2019-04-12] MEDS: SODIUM CHLORIDE 0.9% 1,000 ML IV SCH (16:18)
[2019-04-12] MEDS: ChlordiazePOXIDE HCL 25 MG CAPSULE PO PRN (16:26)
[2019-04-12 17:03] VITALS: BP 131/87
[2019-04-12 20:23] VITALS: BP 133/89
[2019-04-12 23:38] VITALS: BP 135/81
[2019-04-13] MEDS: SODIUM CHLORIDE 0.9% 1,000 ML IV SCH ×2 (00:21→10:10)
[2019-04-13 06:00] VITALS: BP 127/77
[2019-04-13 06:07] LABS: ANION GAP 13 mmol/L (8-16); CALCIUM, TOTAL 8.7 mg/dL (8.8-10.5); CARBON DIOXIDE 24 mmol/L (22-29); CHLORIDE 107 mmol/L (98-107); CREATININE 0.65 mg/dL (0.60-1.30); GLOMERULAR FILTR. RATE CALC > 60 mL/min (>60); GLUCOSE,RANDOM 96 mg/dL (70-110); LIPASE 1196 U/L (73-393); POTASSIUM 3.2 mmol/L (3.5-5.1); SODIUM SERUM 144 mmol/L (136-145); UREA NITROGEN, BLOOD 2 mg/dL (7-18)
[2019-04-13 06:13] LABS: HEMOGLOBIN A1C 5.2 % (4.5-6.2)
[2019-04-13 07:20] VITALS: BP 128/78
[2019-04-13] MEDS: AmLODIPine BESYLATE 5 MG TABLET PO SCH (07:57)
[2019-04-13] MEDS: POTASSIUM CHLORIDE 20 MEQ ER TABLET PO PRN (07:57)
[2019-04-13] MEDS: SERTRALINE HCL 50 MG TABLET PO SCH (07:57)
[2019-04-13] MEDS: FAMOTIDINE 10 MG/ML 2 ML VIAL IVP SCH (07:57)
[2019-04-13 11:01] VITALS: BP 132/67
== END 2019-04-13 12:55 | disposition home or self-care (01) | DRG 282 ==
LOC: EMS 15:53 → 4E 21:30
PROVIDERS: ADMIT Internal Medicine; ATTEND Internal Medicine
DX: K85.90 Acute pancreatitis without necrosis or infection, unspecified (principal); K70.9 Alcoholic liver disease, unspecified; F25.9 Schizoaffective disorder, unspecified; I10 Essential (primary) hypertension; F10.10 Alcohol abuse, uncomplicated; F15.90 Other stimulant use, unspecified, uncomplicated; G89.29 Other chronic pain; F32.9 Major depressive disorder, single episode, unspecified; Z91.19 Patient's noncompliance with other medical treatment and regimen; Z87.891 Personal history of nicotine dependence
CPT/HCPCS: 76700; 83036; 84132; 93005; 96365; 96375; G0378; G0480; J0360; J2270; J3411; J3475; J3490; J7030

== ENCOUNTER 2019-06-01 02:31 | Inpatient (IN) | payer OTHER ==
[~2019-06-01] VITALS: Ht 170.2 cm; Wt 71.7 kg
[~2019-06-01 02:31] MED LIST changes: -SERT50TA12 PO; -SPIR25 PO
[2019-06-01] MEDS ORDERED: FAMOTIDINE 20 MG TABLET PO ONE (03:00)
[2019-06-01] MEDS ORDERED: PB/HYOSCY/ATR/SCOP/LIDO/MAALOX 55 ML BOTTLE PO ONE (03:00)
[2019-06-01] MEDS ORDERED: SUCRALFATE 1 GM TABLET PO ONE (03:00)
[2019-06-01 03:16] LABS: BASOPHILS % (AUTO) 0.9 % (0.0-2.0); EOSINOPHILS % (AUTO) 1.7 % (1.0-6.0); HEMATOCRIT 47.9 % (41-53); HEMOGLOBIN 16.2 g/dL (13.5-17.5); LYMPHOCYTES # (AUTO) 1.2 K/uL (1.0-4.8); LYMPHOCYTES % (AUTO) 25.5 % (22.0-44.0); MEAN CORPUSCULAR HEMOGLOBIN 34.9 pg (26.0-34.0); MEAN CORPUSCULAR HGB CONC 33.9 G/dL (31.0-37.0); MEAN CORPUSCULAR VOLUME 103 fL (80-100); MONOCYTES # (AUTO) 0.6 K/uL (0.1-1.0); MONOCYTES % (AUTO) 12.7 % (2.0-9.0); NEUTROPHILS # (AUTO) 2.9 K/uL (1.8-7.7); NEUTROPHILS % (AUTO) 59.2 % (40.0-70.0); PLATELET COUNT (AUTO) 159 K/uL (150-450); RED BLOOD CELL COUNT(AUTO) 4.64 MIL/uL (4.50-5.90); RED CELL DISTRIBUTION WIDTH 13.2 % (11.5-14.5)
[2019-06-01 03:29] LABS: ALANINE AMINOTRANSFERASE 116 U/L (12-78); ALBUMIN 3.4 g/dL (3.4-5.0); ALKALINE PHOSPHATASE 206 U/L (46-116); ANION GAP 16 mmol/L (8-16); ASPARTATE AMINOTRANSFERASE 396 U/L (15-37); BILIRUBIN,TOTAL 1.5 mg/dL (0.1-1.0); CALCIUM, TOTAL 8.5 mg/dL (8.8-10.5); CARBON DIOXIDE 23 mmol/L (22-29); CHLORIDE 97 mmol/L (98-107); CREATININE 0.65 mg/dL (0.60-1.30); GLOMERULAR FILTR. RATE CALC > 60 mL/min (>60); GLUCOSE,RANDOM 96 mg/dL (70-110); SODIUM SERUM 136 mmol/L (136-145); TOTAL PROTEIN, SERUM 6.9 g/dL (6.4-8.2); UREA NITROGEN, BLOOD 3 mg/dL (7-18)
[2019-06-01] MEDS ORDERED: SODIUM CHLORIDE 0.9% 1,000 ML IV ONE ×2 (03:30→04:15)
[2019-06-01 03:31] LABS: POTASSIUM 2.9 mmol/L (3.5-5.1)
[2019-06-01 03:41] LABS: LIPASE 6641 U/L (73-393)
[2019-06-01] MEDS ORDERED: POTASSIUM CHLORIDE 20 MEQ ER TABLET PO ONE (04:00)
[2019-06-01] MEDS: POTASSIUM CHL 10 MEQ/WATER 50 ML IV SCH ×4 (04:08→14:15)
[2019-06-01] MEDS ORDERED: IOVERSOL 350 MG/ML 100 ML VIAL ONE (04:13)
[2019-06-01] MEDS ORDERED: SODIUM CHLORIDE 0.9% 100 ML ONE (04:13)
[2019-06-01 05:03] VITALS: BP 158/80
[2019-06-01] MEDS ORDERED: SODIUM CHLORIDE 0.9% 500 ML IV ONE (05:31)
[2019-06-01 08:04] VITALS: BP 156/96
[2019-06-01 11:57] VITALS: BP 146/92
[2019-06-01] MEDS ORDERED: ALBUTEROL SULFATE 2.5 MG/0.5 ML NEB SOLUTION NEB PRN (13:00)
[2019-06-01] MEDS ORDERED: MAGNESIUM HYDROXIDE SUSPENSION 30 ML UDCUP PO PRN (13:00)
[2019-06-01] MEDS ORDERED: BISACODYL 10 MG RECTAL RECTAL SUPPOSITORY PR PRN (13:00)
[2019-06-01] MEDS ORDERED: IPRATROPIUM BROMIDE 0.5 MG/2.5 ML NEB SOLUTION NEB PRN (13:00)
[2019-06-01] MEDS ORDERED: MORPHINE SULFATE 4 MG/ML SYRINGE IVP PRN (13:00)
[2019-06-01] MEDS ORDERED: ONDANSETRON HCL 4 MG/2 ML VIAL IVP PRN (13:00)
[2019-06-01] MEDS ORDERED: ZOLPIDEM TARTRATE 5 MG TABLET PO PRN (13:00)
[2019-06-01] MEDS ORDERED: ACETAMINOPHEN 325 MG TABLET PO PRN (13:00)
[2019-06-01] MEDS ORDERED: MAGNESIUM OXIDE 400 MG TABLET PO PRN (13:15)
[2019-06-01] MEDS ORDERED: MAGNESIUM SULFATE 2 GM/WATER 50 ML IV PRN (13:15)
[2019-06-01] MEDS ORDERED: MAGNESIUM SULFATE 4 GM/WATER 100 ML IV PRN (13:15)
[2019-06-01] MEDS: DEXTROSE 5%-0.45% SODIUM CHL 1,000 ML IV SCH ×2 (14:15→22:41)
[2019-06-01 15:59] VITALS: BP 158/95
[2019-06-01] MEDS ORDERED: LORazepam 2 MG/ML VIAL IVP PRN (16:00)
[2019-06-01] MEDS: HEPARIN SODIUM,PORCINE 5,000 UNITS/ML VIAL SQ SCH ×3 (16:00→23:40)
[2019-06-01] MEDS: ChlordiazePOXIDE HCL 25 MG CAPSULE PO SCH ×2 (18:09→23:40)
[2019-06-01 20:05] VITALS: BP 161/101
[2019-06-01] MEDS: DOCUSATE SODIUM 100 MG CAPSULE PO SCH (20:23)
[2019-06-01] MEDS: RisperiDONE 1 MG TABLET PO SCH (20:23)
[2019-06-01] MEDS: POTASSIUM CHLORIDE 20 MEQ ER TABLET PO PRN (20:51)
[2019-06-02 00:20] VITALS: BP 140/99
[2019-06-02] MEDS: POTASSIUM CHL 10 MEQ/WATER 50 ML IV PRN ×4 (03:45→12:42)
[2019-06-02] MEDS ORDERED: SODIUM CHLORIDE 0.9% 1,000 ML IV ONE (03:48)
[2019-06-02 04:35] VITALS: BP 127/83
[2019-06-02] MEDS: ChlordiazePOXIDE HCL 25 MG CAPSULE PO SCH ×4 (05:36→23:38)
[2019-06-02 06:16] LABS: BASOPHILS % (AUTO) 0.4 % (0.0-2.0); EOSINOPHILS % (AUTO) 1.5 % (1.0-6.0); HEMATOCRIT 49.4 % (41-53); HEMOGLOBIN 16.5 g/dL (13.5-17.5); LYMPHOCYTES # (AUTO) 1.4 K/uL (1.0-4.8); MEAN CORPUSCULAR HEMOGLOBIN 34.3 pg (26.0-34.0); MEAN CORPUSCULAR HGB CONC 33.4 G/dL (31.0-37.0); MEAN CORPUSCULAR VOLUME 103 fL (80-100); MONOCYTES # (AUTO) 0.6 K/uL (0.1-1.0); NEUTROPHILS # (AUTO) 2.8 K/uL (1.8-7.7); NEUTROPHILS % (AUTO) 57.1 % (40.0-70.0); PLATELET COUNT (AUTO) 148 K/uL (150-450); RED BLOOD CELL COUNT(AUTO) 4.81 MIL/uL (4.50-5.90)
[2019-06-02 06:30] LABS: ALANINE AMINOTRANSFERASE 81 U/L (12-78); ALBUMIN 3.1 g/dL (3.4-5.0); ALKALINE PHOSPHATASE 171 U/L (46-116); AMYLASE 157 U/L (25-115); ANION GAP 9 mmol/L (8-16); ASPARTATE AMINOTRANSFERASE 189 U/L (15-37); BILIRUBIN,TOTAL 2.5 mg/dL (0.1-1.0); CALCIUM, TOTAL 8.9 mg/dL (8.8-10.5); CARBON DIOXIDE 27 mmol/L (22-29); CHLORIDE 99 mmol/L (98-107); GLOMERULAR FILTR. RATE CALC > 60 mL/min (>60); GLUCOSE,RANDOM 126 mg/dL (70-110); POTASSIUM 3.1 mmol/L (3.5-5.1); SODIUM SERUM 135 mmol/L (136-145); TOTAL PROTEIN, SERUM 6.3 g/dL (6.4-8.2); UREA NITROGEN, BLOOD 2 mg/dL (7-18)
[2019-06-02 07:06] LABS: LIPASE 3460 U/L (73-393)
[2019-06-02] MEDS: HEPARIN SODIUM,PORCINE 5,000 UNITS/ML VIAL SQ SCH ×3 (08:23→23:37)
[2019-06-02] MEDS: THIAMINE HCL 100 MG TABLET PO SCH (08:23)
[2019-06-02] MEDS: RisperiDONE 1 MG TABLET PO SCH ×2 (08:23→20:10)
[2019-06-02] MEDS: DOCUSATE SODIUM 100 MG CAPSULE PO SCH ×2 (08:23→20:10)
[2019-06-02] MEDS: LISINOPRIL 5 MG TABLET PO SCH (08:23)
[2019-06-02] MEDS: MULTIVITAMINS, THERAPEUTIC TABLET PO SCH ×2 (08:23→08:24)
[2019-06-02] MEDS: FAMOTIDINE 20 MG TABLET PO SCH (08:23)
[2019-06-02] MEDS ORDERED: FOLIC ACID 1 MG TABLET PO SCH (09:00)
[2019-06-02] MEDS: FOLIC ACID 1 MG TABLET PO SCH (09:29)
[2019-06-02 11:10] VITALS: BP 144/94
[2019-06-02] MEDS ORDERED: SODIUM CHLORIDE 0.9% 500 ML IV ONE (14:49)
[2019-06-02 17:12] VITALS: BP 150/90
[2019-06-02 19:27] VITALS: BP 130/83
[2019-06-02] MEDS: DEXTROSE 5%-0.45% SODIUM CHL 1,000 ML IV SCH (19:50)
[2019-06-02 23:28] VITALS: BP 135/91
[2019-06-03] MEDS: DEXTROSE 5%-0.45% SODIUM CHL 1,000 ML IV SCH ×2 (04:15→09:59)
[2019-06-03 04:22] VITALS: BP 129/89
[2019-06-03] MEDS: ChlordiazePOXIDE HCL 25 MG CAPSULE PO SCH ×3 (05:29→17:52)
[2019-06-03 07:11] LABS: BASOPHILS % (AUTO) 0.7 % (0.0-2.0); HEMATOCRIT 48.3 % (41-53); HEMOGLOBIN 16.2 g/dL (13.5-17.5); LYMPHOCYTES # (AUTO) 1.5 K/uL (1.0-4.8); LYMPHOCYTES % (AUTO) 30.4 % (22.0-44.0); MEAN CORPUSCULAR HEMOGLOBIN 34.7 pg (26.0-34.0); MEAN CORPUSCULAR HGB CONC 33.5 G/dL (31.0-37.0); MEAN CORPUSCULAR VOLUME 104 fL (80-100); MONOCYTES # (AUTO) 0.7 K/uL (0.1-1.0); MONOCYTES % (AUTO) 13.7 % (2.0-9.0); NEUTROPHILS # (AUTO) 2.6 K/uL (1.8-7.7); NEUTROPHILS % (AUTO) 53.2 % (40.0-70.0); PLATELET COUNT (AUTO) 157 K/uL (150-450); RED BLOOD CELL COUNT(AUTO) 4.67 MIL/uL (4.50-5.90); RED CELL DISTRIBUTION WIDTH 12.9 % (11.5-14.5)
[2019-06-03 07:26] VITALS: BP 143/95
[2019-06-03 07:54] LABS: ALANINE AMINOTRANSFERASE 65 U/L (12-78); ALKALINE PHOSPHATASE 148 U/L (46-116); AMYLASE 131 U/L (25-115); ANION GAP 8 mmol/L (8-16); ASPARTATE AMINOTRANSFERASE 101 U/L (15-37); BILIRUBIN,TOTAL 1.9 mg/dL (0.1-1.0); CALCIUM, TOTAL 9.2 mg/dL (8.8-10.5); CARBON DIOXIDE 27 mmol/L (22-29); CHLORIDE 101 mmol/L (98-107); CREATININE 0.72 mg/dL (0.60-1.30); GLOMERULAR FILTR. RATE CALC > 60 mL/min (>60); GLUCOSE,RANDOM 142 mg/dL (70-110); SODIUM SERUM 136 mmol/L (136-145); TOTAL PROTEIN, SERUM 6.2 g/dL (6.4-8.2); UREA NITROGEN, BLOOD 2 mg/dL (7-18)
[2019-06-03 08:01] LABS: POTASSIUM 2.8 mmol/L (3.5-5.1)
[2019-06-03 08:27] LABS: LIPASE 2696 U/L (73-393)
[2019-06-03] MEDS: THIAMINE HCL 100 MG TABLET PO SCH (08:51)
[2019-06-03] MEDS: DOCUSATE SODIUM 100 MG CAPSULE PO SCH ×2 (08:51→20:30)
[2019-06-03] MEDS: RisperiDONE 1 MG TABLET PO SCH ×2 (08:51→20:30)
[2019-06-03] MEDS: MULTIVITAMINS, THERAPEUTIC TABLET PO SCH ×2 (08:51→08:53)
[2019-06-03] MEDS: LISINOPRIL 5 MG TABLET PO SCH (08:51)
[2019-06-03] MEDS: FOLIC ACID 1 MG TABLET PO SCH (08:51)
[2019-06-03] MEDS: FAMOTIDINE 20 MG TABLET PO SCH (08:53)
[2019-06-03] MEDS: HEPARIN SODIUM,PORCINE 5,000 UNITS/ML VIAL SQ SCH ×2 (08:57→15:19)
[2019-06-03] MEDS: POTASSIUM CHL 10 MEQ/WATER 50 ML IV PRN ×4 (08:57→10:36)
[2019-06-03 11:10] VITALS: BP 161/104
[2019-06-03] MEDS ORDERED: SODIUM CHLORIDE 0.9% 500 ML IV ONE (12:27)
[2019-06-03] MEDS ORDERED: POTASSIUM CHLORIDE 20 MEQ ER TABLET PO PRN (12:30)
[2019-06-03] MEDS ORDERED: POTASSIUM CHL 10 MEQ/WATER 50 ML IV PRN (12:30)
[2019-06-03 15:05] VITALS: BP 160/97
[2019-06-03] MEDS: POTASSIUM CHLORIDE 20 MEQ ER TABLET PO PRN (16:31)
[2019-06-03 19:38] VITALS: BP 158/93
[2019-06-03] MEDS: OxyCODONE HCL/ACETAMINOPHEN 5-325 MG TABLET PO PRN (20:35)
[2019-06-03] MEDS ORDERED: POTASSIUM CHLORIDE 20 MEQ ER TABLET PO ONE (23:30)
[2019-06-03 23:46] VITALS: BP 145/92
[2019-06-04] MEDS: HEPARIN SODIUM,PORCINE 5,000 UNITS/ML VIAL SQ SCH ×3 (00:39→17:25)
[2019-06-04] MEDS: ChlordiazePOXIDE HCL 25 MG CAPSULE PO SCH ×3 (00:40→12:39)
[2019-06-04 04:30] VITALS: BP 134/87
[2019-06-04 06:41] LABS: BASOPHILS % (AUTO) 0.6 % (0.0-2.0); EOSINOPHILS % (AUTO) 2.7 % (1.0-6.0); HEMATOCRIT 49.3 % (41-53); HEMOGLOBIN 16.3 g/dL (13.5-17.5); LYMPHOCYTES # (AUTO) 1.7 K/uL (1.0-4.8); MEAN CORPUSCULAR HEMOGLOBIN 34.3 pg (26.0-34.0); MEAN CORPUSCULAR HGB CONC 33.1 G/dL (31.0-37.0); MEAN CORPUSCULAR VOLUME 104 fL (80-100); MONOCYTES # (AUTO) 0.7 K/uL (0.1-1.0); MONOCYTES % (AUTO) 13.7 % (2.0-9.0); NEUTROPHILS # (AUTO) 2.8 K/uL (1.8-7.7); PLATELET COUNT (AUTO) 185 K/uL (150-450); RED BLOOD CELL COUNT(AUTO) 4.75 MIL/uL (4.50-5.90); RED CELL DISTRIBUTION WIDTH 13.2 % (11.5-14.5)
[2019-06-04 07:12] LABS: ALANINE AMINOTRANSFERASE 55 U/L (12-78); ALBUMIN 3.1 g/dL (3.4-5.0); ALKALINE PHOSPHATASE 147 U/L (46-116); AMYLASE 130 U/L (25-115); ANION GAP 8 mmol/L (8-16); ASPARTATE AMINOTRANSFERASE 74 U/L (15-37); BILIRUBIN,TOTAL 1.3 mg/dL (0.1-1.0); CALCIUM, TOTAL 9.7 mg/dL (8.8-10.5); CARBON DIOXIDE 26 mmol/L (22-29); CHLORIDE 103 mmol/L (98-107); CREATININE 0.64 mg/dL (0.60-1.30); GLOMERULAR FILTR. RATE CALC > 60 mL/min (>60); GLUCOSE,RANDOM 122 mg/dL (70-110); LIPASE 1764 U/L (73-393); POTASSIUM 3.3 mmol/L (3.5-5.1); SODIUM SERUM 137 mmol/L (136-145); TOTAL PROTEIN, SERUM 6.5 g/dL (6.4-8.2); UREA NITROGEN, BLOOD 2 mg/dL (7-18)
[2019-06-04 07:28] VITALS: BP 146/92
[2019-06-04] MEDS: RisperiDONE 1 MG TABLET PO SCH ×2 (09:14→20:50)
[2019-06-04] MEDS: LISINOPRIL 5 MG TABLET PO SCH (09:15)
[2019-06-04] MEDS: OxyCODONE HCL/ACETAMINOPHEN 5-325 MG TABLET PO PRN (09:15)
[2019-06-04] MEDS: FAMOTIDINE 20 MG TABLET PO SCH (09:15)
[2019-06-04] MEDS: THIAMINE HCL 100 MG TABLET PO SCH (09:15)
[2019-06-04] MEDS: DOCUSATE SODIUM 100 MG CAPSULE PO SCH (09:16)
[2019-06-04] MEDS: FOLIC ACID 1 MG TABLET PO SCH (09:16)
[2019-06-04] MEDS: POTASSIUM CHLORIDE 20 MEQ ER TABLET PO PRN (09:16)
[2019-06-04] MEDS: MULTIVITAMINS, THERAPEUTIC TABLET PO SCH (09:16)
[2019-06-04] MEDS ORDERED: GADOBUTROL 1 MMOL/ML 10 ML VIAL IVP ONE (09:19)
[2019-06-04 15:00] VITALS: BP 148/97
[2019-06-04 15:40] LABS: ANION GAP 9 mmol/L (8-16); CALCIUM, TOTAL 10.2 mg/dL (8.8-10.5); CARBON DIOXIDE 26 mmol/L (22-29); CHLORIDE 102 mmol/L (98-107); CREATININE 0.57 mg/dL (0.60-1.30); GLOMERULAR FILTR. RATE CALC > 60 mL/min (>60); GLUCOSE,RANDOM 120 mg/dL (70-110); POTASSIUM 3.9 mmol/L (3.5-5.1); SODIUM SERUM 137 mmol/L (136-145); UREA NITROGEN, BLOOD 3 mg/dL (7-18)
[2019-06-04 16:15] VITALS: BP 123/89
[2019-06-04 16:55] LABS: PROTHROMBIN TIME 10.4 SEC (9.4-11.6)
[2019-06-04 20:10] VITALS: BP 124/87
[2019-06-04 23:55] VITALS: BP 122/84
[2019-06-05 04:32] VITALS: BP 125/83
[2019-06-05 06:25] LABS: HEMATOCRIT 47.6 % (41-53); HEMOGLOBIN 15.8 g/dL (13.5-17.5); LYMPHOCYTES # (AUTO) 1.7 K/uL (1.0-4.8); LYMPHOCYTES % (AUTO) 32.9 % (22.0-44.0); MEAN CORPUSCULAR HEMOGLOBIN 34.7 pg (26.0-34.0); MEAN CORPUSCULAR HGB CONC 33.2 G/dL (31.0-37.0); MEAN CORPUSCULAR VOLUME 104 fL (80-100); MONOCYTES # (AUTO) 0.7 K/uL (0.1-1.0); MONOCYTES % (AUTO) 13.4 % (2.0-9.0); NEUTROPHILS # (AUTO) 2.6 K/uL (1.8-7.7); NEUTROPHILS % (AUTO) 49.7 % (40.0-70.0); PLATELET COUNT (AUTO) 211 K/uL (150-450); RED BLOOD CELL COUNT(AUTO) 4.56 MIL/uL (4.50-5.90); RED CELL DISTRIBUTION WIDTH 13.1 % (11.5-14.5)
[2019-06-05 06:58] LABS: ALANINE AMINOTRANSFERASE 51 U/L (12-78); ALBUMIN 3.2 g/dL (3.4-5.0); ALKALINE PHOSPHATASE 137 U/L (46-116); AMYLASE 135 U/L (25-115); ANION GAP 9 mmol/L (8-16); ASPARTATE AMINOTRANSFERASE 56 U/L (15-37); BILIRUBIN,TOTAL 1.1 mg/dL (0.1-1.0); CARBON DIOXIDE 26 mmol/L (22-29); CHLORIDE 103 mmol/L (98-107); CREATININE 0.57 mg/dL (0.60-1.30); GLOMERULAR FILTR. RATE CALC > 60 mL/min (>60); GLUCOSE,RANDOM 113 mg/dL (70-110); LIPASE 1483 U/L (73-393); POTASSIUM 3.1 mmol/L (3.5-5.1); SODIUM SERUM 138 mmol/L (136-145); TOTAL PROTEIN, SERUM 6.5 g/dL (6.4-8.2); UREA NITROGEN, BLOOD 3 mg/dL (7-18)
[2019-06-05 08:00] VITALS: BP 127/86
[2019-06-05] MEDS: THIAMINE HCL 100 MG TABLET PO SCH (09:57)
[2019-06-05] MEDS: HEPARIN SODIUM,PORCINE 5,000 UNITS/ML VIAL SQ SCH ×3 (09:57→15:29)
[2019-06-05] MEDS: RisperiDONE 1 MG TABLET PO SCH (09:58)
[2019-06-05] MEDS: LISINOPRIL 5 MG TABLET PO SCH (09:58)
[2019-06-05] MEDS: MULTIVITAMINS, THERAPEUTIC TABLET PO SCH (09:58)
[2019-06-05] MEDS: FOLIC ACID 1 MG TABLET PO SCH (09:58)
[2019-06-05 11:35] VITALS: BP 116/75
[2019-06-05] MEDS ORDERED: THIA100T67 PO (13:16)
[2019-06-05] MEDS ORDERED: LIB25 PO ×4 (13:17→13:19)
== END 2019-06-05 15:45 | disposition home or self-care (01) | DRG 282 ==
LOC: EMS 02:32 → 4E 04:00 → 6N 06-04 08:10
PROVIDERS: ADMIT Internal Medicine; ATTEND Internal Medicine
DX: K85.90 Acute pancreatitis without necrosis or infection, unspecified (principal); D69.6 Thrombocytopenia, unspecified; E44.0 Moderate protein-calorie malnutrition; K74.60 Unspecified cirrhosis of liver; F20.9 Schizophrenia, unspecified; R74.0 Nonspecific elevation of levels of transaminase and lactic acid dehydrogenase [LDH]; E87.6 Hypokalemia; F17.210 Nicotine dependence, cigarettes, uncomplicated; F15.90 Other stimulant use, unspecified, uncomplicated; F32.9 Major depressive disorder, single episode, unspecified; F10.10 Alcohol abuse, uncomplicated; Y90.3 Blood alcohol level of 60-79 mg/100 ml; I10 Essential (primary) hypertension; Z68.24 Body mass index [BMI] 24.0-24.9, adult; F19.10 Other psychoactive substance abuse, uncomplicated
CPT/HCPCS: 74177; 74183; 76705; 82271; 83735; 84100; 84132; 93005; A9585; G0378; G0480; J1644; J3480; J7030; J7040; J7050

== ENCOUNTER 2020-02-12 10:17 | Inpatient (IN) | payer MEDICAID, OTHER ==
[~2020-02-12] VITALS: Ht 170.2 cm; Wt 61.1 kg
[~2020-02-12 10:17] MED LIST changes: -FAMO40TA7 PO; +LIB25 PO; -LISI-622 PO; -RISP1 PO; +THIA100T67 PO
[2020-02-12] MEDS ORDERED: SODIUM CHLORIDE 0.9% 1,000 ML IV ONE ×2 (10:30→13:00)
[2020-02-12 10:55] LABS: BASOPHILS % (AUTO) 0.5 % (0.0-2.0); EOSINOPHILS % (AUTO) 1.6 % (1.0-6.0); HEMOGLOBIN 16.1 g/dL (13.5-17.5); LYMPHOCYTES # (AUTO) 0.8 K/uL (1.0-4.8); LYMPHOCYTES % (AUTO) 12.8 % (22.0-44.0); MEAN CORPUSCULAR HGB CONC 33.5 G/dL (31.0-37.0); MEAN CORPUSCULAR VOLUME 99 fL (80-100); MONOCYTES # (AUTO) 0.7 K/uL (0.1-1.0); MONOCYTES % (AUTO) 11.3 % (2.0-9.0); NEUTROPHILS # (AUTO) 4.9 K/uL (1.8-7.7); NEUTROPHILS % (AUTO) 73.8 % (40.0-70.0); PLATELET COUNT (AUTO) 169 K/uL (150-450); RED BLOOD CELL COUNT(AUTO) 4.87 MIL/uL (4.50-5.90); RED CELL DISTRIBUTION WIDTH 12.8 % (11.5-14.5)
[2020-02-12 11:06] LABS: ANION GAP 16 mmol/L (8-16); CALCIUM, TOTAL 9.4 mg/dL (8.8-10.5); CARBON DIOXIDE 21 mmol/L (22-29); CHLORIDE 94 mmol/L (98-107); CREATININE 0.65 mg/dL (0.60-1.30); GLOMERULAR FILTR. RATE CALC > 60 mL/min (>60); GLUCOSE,RANDOM 108 mg/dL (70-110); POTASSIUM 3.7 mmol/L (3.5-5.1); SODIUM SERUM 131 mmol/L (136-145); UREA NITROGEN, BLOOD 3 mg/dL (7-18)
[2020-02-12 11:20] LABS: ALANINE AMINOTRANSFERASE 102 U/L (12-78); ALBUMIN 4.2 g/dL (3.4-5.0); ALKALINE PHOSPHATASE 161 U/L (46-116); ASPARTATE AMINOTRANSFERASE 193 U/L (15-37); BILIRUBIN,TOTAL 1.5 mg/dL (0.1-1.0); FREE T4 (FREE THYROXINE) 1.07 ng/dL (0.76-1.46); THYROID STIMULATING HORMONE 1.68 uIU/mL (0.36-3.74); TOTAL PROTEIN, SERUM 7.9 g/dL (6.4-8.2)
[2020-02-12 12:56] LABS: AMPHET/METH SCREEN,URINE POSITIVE (NEGATIVE); BARBITURATE SCREEN, URINE NEGATIVE (NEGATIVE); BENZODIAZEPINES SCREEN,URINE NEGATIVE (NEGATIVE); CANNABINOID SCREEN,URINE NEGATIVE (NEGATIVE); COCAINE SCREEN,URINE NEGATIVE (NEGATIVE); METHADONE SCREEN, URINE NEGATIVE (NEGATIVE); OPIATE SCREEN,URINE NEGATIVE (NEGATIVE); PHENCYCLIDINE SCREEN,URINE NEGATIVE (NEGATIVE)
[2020-02-12] MEDS ORDERED: PERTUSS(ACELL),DIPH,TET VAC/PF 0.5 ML VIAL IM ONE (13:00)
[2020-02-12] MEDS ORDERED: LORazepam 2 MG TABLET PO ONE (13:00)
[2020-02-12] MEDS ORDERED: ZOLPIDEM TARTRATE 10 MG TABLET PO PRN (13:15)
[2020-02-12] MEDS ORDERED: LORazepam 2 MG TABLET PO PRN (13:15)
[2020-02-12] MEDS ORDERED: HALOPERIDOL 5 MG TABLET PO PRN (13:15)
[2020-02-12 17:26] VITALS: BP 138/88
[2020-02-12] MEDS ORDERED: PNEUMOCOCCAL VACCINE POLYVALENT 0.5 ML VIAL [PPSV23] IM ONE (18:00)
[2020-02-13 06:48] VITALS: BP 137/82
[2020-02-13 08:33] LABS: CHOL/HDL RATIO 1.9 (4.2-7.3)
[2020-02-13] MEDS ORDERED: MAG HYDROX/AL HYDROX/SIMETH ES 30 ML SUSPENSION UDCUP PO PRN ×2 (08:45→09:00)
[2020-02-13] MEDS ORDERED: CloNIDine HCL 0.1 MG TABLET PO PRN ×2 (08:45→09:00)
[2020-02-13] MEDS ORDERED: PETROLATUM,WHITE 28 GM JELLY TP PRN ×2 (08:45→09:00)
[2020-02-13] MEDS ORDERED: ONDANSETRON HCL 4 MG TABLET PO PRN ×2 (08:45→09:00)
[2020-02-13] MEDS ORDERED: ACETAMINOPHEN 325 MG TABLET PO PRN ×2 (08:45→09:00)
[2020-02-13] MEDS ORDERED: GuaiFENesin/D-METHORPHAN [SUGAR-FREE] 200-20MG/10 ML SYRUP UDCUP PO PRN ×2 (08:45→09:00)
[2020-02-13] MEDS ORDERED: NICOTINE 14 MG/24 HOUR PATCH TD PRN ×2 (08:45→09:00)
[2020-02-13] MEDS ORDERED: LOPERAMIDE HCL 2 MG CAPSULE PO PRN ×2 (08:45→09:00)
[2020-02-13] MEDS ORDERED: IBUPROFEN 400 MG TABLET PO PRN ×2 (08:45→09:00)
[2020-02-13] MEDS ORDERED: DOCUSATE SODIUM 100 MG CAPSULE PO PRN ×2 (08:45→09:00)
[2020-02-13] MEDS ORDERED: MAGNESIUM HYDROXIDE SUSPENSION 30 ML UDCUP PO PRN ×2 (08:45→09:00)
[2020-02-13] MEDS ORDERED: ALBUTEROL SULFATE HFA 90 MCG/PUFF 8 GM INHALER IH PRN ×2 (08:45→09:00)
[2020-02-13 09:45] VITALS: BP 180/108
[2020-02-13] MEDS: SODIUM CHLORIDE 1 GM TABLET PO SCH ×2 (09:45→16:31)
[2020-02-13] MEDS: BACITRACIN 28.4 GM OINTMENT TP SCH ×2 (09:45→16:31)
[2020-02-13 10:45] VITALS: BP 139/100
[2020-02-13] MEDS: OLANZapine 5 MG TABLET PO SCH ×2 (12:50→16:31)
[2020-02-13 18:49] VITALS: BP 144/83
[2020-02-13 21:17] VITALS: BP 133/94
[2020-02-14 05:13] VITALS: BP 140/82
[2020-02-14 08:40] LABS: ANION GAP 13 mmol/L (8-16); CALCIUM, TOTAL 9.9 mg/dL (8.8-10.5); CARBON DIOXIDE 24 mmol/L (22-29); CHLORIDE 103 mmol/L (98-107); GLOMERULAR FILTR. RATE CALC > 60 mL/min (>60); GLUCOSE,RANDOM 121 mg/dL (70-110); POTASSIUM 3.3 mmol/L (3.5-5.1); SODIUM SERUM 140 mmol/L (136-145); UREA NITROGEN, BLOOD 7 mg/dL (7-18)
[2020-02-14] MEDS: OLANZapine 5 MG TABLET PO SCH ×2 (08:45→16:16)
[2020-02-14] MEDS: SODIUM CHLORIDE 1 GM TABLET PO SCH ×2 (08:45→16:15)
[2020-02-14] MEDS: BACITRACIN 28.4 GM OINTMENT TP SCH ×2 (08:45→16:17)
[2020-02-14 08:52] VITALS: BP 153/96
[2020-02-14 10:00] VITALS: BP 130/81
[2020-02-14] MEDS ORDERED: POTASSIUM CHLORIDE 20 MEQ ER TABLET PO ONE ×2 (13:45→14:45)
[2020-02-14 19:01] VITALS: BP 149/89
[2020-02-15 06:31] VITALS: BP 140/86
[2020-02-15] MEDS ORDERED: NACL1 PO (07:49)
[2020-02-15] MEDS ORDERED: OLAN5TAB2 PO (07:49)
[2020-02-15] MEDS: BACITRACIN 28.4 GM OINTMENT TP SCH (08:41)
[2020-02-15] MEDS: OLANZapine 5 MG TABLET PO SCH (08:41)
[2020-02-15] MEDS: SODIUM CHLORIDE 1 GM TABLET PO SCH (08:41)
[2020-02-15 09:58] VITALS: BP 166/92
== END 2020-02-15 12:05 | disposition home or self-care (01) | DRG 750 ==
LOC: EMS 10:17 → B2S 14:22
PROVIDERS: ADMIT Psychiatry & Neurology Psychiatry; ATTEND Psychiatry & Neurology Psychiatry
DX: F20.9 Schizophrenia, unspecified (principal); E87.1 Hypo-osmolality and hyponatremia; K74.60 Unspecified cirrhosis of liver; E87.6 Hypokalemia; F10.20 Alcohol dependence, uncomplicated; F15.10 Other stimulant abuse, uncomplicated; S61.512A Laceration without foreign body of left wrist, initial encounter; X78.8XXA Intentional self-harm by other sharp object, initial encounter; Y93.89 Activity, other specified; Y92.89 Other specified places as the place of occurrence of the external cause; Y99.8 Other external cause status; F32.9 Major depressive disorder, single episode, unspecified; Y90.9 Presence of alcohol in blood, level not specified; K76.9 Liver disease, unspecified; Z79.899 Other long term (current) drug therapy; I10 Essential (primary) hypertension; K21.9 Gastro-esophageal reflux disease without esophagitis; K86.1 Other chronic pancreatitis; Z59.0 Homelessness; Z87.891 Personal history of nicotine dependence; F41.9 Anxiety disorder, unspecified; Z28.21 Immunization not carried out because of patient refusal
CPT/HCPCS: 84132; 84439; 84443; 90715; 90732; 93005; G0480; J7030

== ENCOUNTER 2020-02-24 17:22 | Inpatient (IN) | payer MEDICAID, OTHER ==
[~2020-02-24] VITALS: Ht 170.2 cm; Wt 64.2 kg
[~2020-02-24 17:22] MED LIST changes: -FOLI1TAB15 PO; -LIB25 PO; -MULT-959 PO; +NACL1 PO; +OLAN5TAB2 PO; -THIA100T67 PO
[2020-02-24] MEDS ORDERED: ACETAMINOPHEN 325 MG TABLET PO ONE (18:15)
[2020-02-24 18:36] LABS: BASOPHILS % (AUTO) 0.7 % (0.0-2.0); EOSINOPHILS % (AUTO) 1.6 % (1.0-6.0); HEMATOCRIT 46.2 % (41-53); HEMOGLOBIN 15.4 g/dL (13.5-17.5); LYMPHOCYTES # (AUTO) 1.1 K/uL (1.0-4.8); LYMPHOCYTES % (AUTO) 11.3 % (22.0-44.0); MEAN CORPUSCULAR HEMOGLOBIN 33.1 pg (26.0-34.0); MEAN CORPUSCULAR HGB CONC 33.4 G/dL (31.0-37.0); MEAN CORPUSCULAR VOLUME 99 fL (80-100); MONOCYTES # (AUTO) 0.8 K/uL (0.1-1.0); MONOCYTES % (AUTO) 8.6 % (2.0-9.0); NEUTROPHILS # (AUTO) 7.4 K/uL (1.8-7.7); NEUTROPHILS % (AUTO) 77.8 % (40.0-70.0); PLATELET COUNT (AUTO) 284 K/uL (150-450); RED BLOOD CELL COUNT(AUTO) 4.66 MIL/uL (4.50-5.90); RED CELL DISTRIBUTION WIDTH 13.2 % (11.5-14.5)
[2020-02-24 18:49] LABS: ANION GAP 16 mmol/L (8-16); CALCIUM, TOTAL 9.1 mg/dL (8.8-10.5); CARBON DIOXIDE 21 mmol/L (22-29); CHLORIDE 95 mmol/L (98-107); CREATININE 0.65 mg/dL (0.60-1.30); GLOMERULAR FILTR. RATE CALC > 60 mL/min (>60); GLUCOSE,RANDOM 76 mg/dL (70-110); POTASSIUM 3.6 mmol/L (3.5-5.1); SODIUM SERUM 132 mmol/L (136-145); UREA NITROGEN, BLOOD 4 mg/dL (7-18)
[2020-02-24 18:54] LABS: ALANINE AMINOTRANSFERASE 61 U/L (12-78); ALBUMIN 3.9 g/dL (3.4-5.0); ALKALINE PHOSPHATASE 161 U/L (46-116); ASPARTATE AMINOTRANSFERASE 95 U/L (15-37); BILIRUBIN,TOTAL 2.2 mg/dL (0.1-1.0); TOTAL PROTEIN, SERUM 7.6 g/dL (6.4-8.2)
[2020-02-24] MEDS ORDERED: HALOPERIDOL 5 MG TABLET PO PRN (20:45)
[2020-02-24] MEDS ORDERED: LORazepam 2 MG TABLET PO PRN (20:45)
[2020-02-24 22:07] LABS: AMPHET/METH SCREEN,URINE POSITIVE (NEGATIVE); BARBITURATE SCREEN, URINE NEGATIVE (NEGATIVE); BENZODIAZEPINES SCREEN,URINE NEGATIVE (NEGATIVE); CANNABINOID SCREEN,URINE NEGATIVE (NEGATIVE); COCAINE SCREEN,URINE NEGATIVE (NEGATIVE); METHADONE SCREEN, URINE NEGATIVE (NEGATIVE); OPIATE SCREEN,URINE NEGATIVE (NEGATIVE)
[2020-02-24] MEDS: ZOLPIDEM TARTRATE 10 MG TABLET PO PRN (22:11)
[2020-02-24 22:24] LABS: PHENCYCLIDINE SCREEN,URINE NEGATIVE (NEGATIVE)
[2020-02-25 00:45] VITALS: BP 146/90
[2020-02-25 05:58] LABS: APPEARANCE,URINE CLEAR (CLEAR); BILIRUBIN,URINE NEGATIVE (NEGATIVE); GLUCOSE, URINE (UA) NEGATIVE (NEGATIVE); KETONES,URINE 15 mg/dL (NEGATIVE); LEUKOCYTE ESTERASE ,URINE NEGATIVE (NEGATIVE); NITRATE,URINE NEGATIVE (NEGATIVE); OCCULT BLOOD,URINE NEGATIVE (NEGATIVE); PROTEIN,URINE NEGATIVE (NEGATIVE)
[2020-02-25] MEDS: SODIUM CHLORIDE 1 GM TABLET PO SCH ×2 (08:11→16:15)
[2020-02-25 08:50] VITALS: BP 158/93
[2020-02-25] MEDS: OLANZapine 5 MG TABLET PO SCH (16:15)
[2020-02-25 18:04] VITALS: BP 140/85
[2020-02-26 02:41] VITALS: BP 148/105
[2020-02-26] MEDS: OLANZapine 5 MG TABLET PO SCH ×2 (08:06→16:09)
[2020-02-26] MEDS: SODIUM CHLORIDE 1 GM TABLET PO SCH ×2 (08:07→16:09)
[2020-02-26 09:31] VITALS: BP 151/88
[2020-02-26 16:37] VITALS: BP_SYST 110; BP_SYST 151; BP_DIAS 71; BP_DIAS 87
[2020-02-26] MEDS: ZOLPIDEM TARTRATE 10 MG TABLET PO PRN (20:59)
[2020-02-27] MEDS: OLANZapine 5 MG TABLET PO SCH ×2 (08:01→16:15)
[2020-02-27] MEDS: SODIUM CHLORIDE 1 GM TABLET PO SCH ×2 (08:01→16:15)
[2020-02-27 08:43] VITALS: BP 151/100
[2020-02-27 16:26] VITALS: BP 158/99
[2020-02-27] MEDS ORDERED: NICOTINE 14 MG/24 HOUR PATCH TD PRN (20:00)
[2020-02-27] MEDS ORDERED: MAG HYDROX/AL HYDROX/SIMETH ES 30 ML SUSPENSION UDCUP PO PRN (20:00)
[2020-02-27] MEDS ORDERED: MAGNESIUM HYDROXIDE SUSPENSION 30 ML UDCUP PO PRN (20:00)
[2020-02-27] MEDS ORDERED: LOPERAMIDE HCL 2 MG CAPSULE PO PRN (20:00)
[2020-02-27] MEDS ORDERED: DOCUSATE SODIUM 100 MG CAPSULE PO PRN (20:00)
[2020-02-27] MEDS ORDERED: GuaiFENesin/D-METHORPHAN [SUGAR-FREE] 200-20MG/10 ML SYRUP UDCUP PO PRN (20:00)
[2020-02-27] MEDS ORDERED: CloNIDine HCL 0.1 MG TABLET PO PRN (20:00)
[2020-02-27] MEDS ORDERED: ONDANSETRON HCL 4 MG TABLET PO PRN (20:00)
[2020-02-27] MEDS ORDERED: ACETAMINOPHEN 325 MG TABLET PO PRN (20:00)
[2020-02-27] MEDS ORDERED: IBUPROFEN 400 MG TABLET PO PRN (20:00)
[2020-02-27] MEDS ORDERED: ALBUTEROL SULFATE HFA 90 MCG/PUFF 8 GM INHALER IH PRN (20:00)
[2020-02-27] MEDS ORDERED: PETROLATUM,WHITE 28 GM JELLY TP PRN (20:00)
[2020-02-28] MEDS: SODIUM CHLORIDE 1 GM TABLET PO SCH ×2 (08:13→16:06)
[2020-02-28] MEDS: OLANZapine 5 MG TABLET PO SCH ×2 (08:13→16:06)
[2020-02-28 08:14] LABS: CHOL/HDL RATIO 2.7 (4.2-7.3); THYROID STIMULATING HORMONE 1.61 uIU/mL (0.36-3.74)
[2020-02-28 08:25] LABS: HEMOGLOBIN A1C 4.9 % (3.8-5.6)
[2020-02-28 08:41] VITALS: BP 142/74
[2020-02-28 10:50] VITALS: BP 144/86
[2020-02-28] MEDS: AmLODIPine BESYLATE 5 MG TABLET PO SCH (10:54)
[2020-02-28 18:05] VITALS: BP 140/90
[2020-02-29 09:17] VITALS: BP 145/88
[2020-02-29] MEDS: AmLODIPine BESYLATE 5 MG TABLET PO SCH (09:31)
[2020-02-29] MEDS: OLANZapine 5 MG TABLET PO SCH ×2 (09:31→16:09)
[2020-02-29] MEDS: SODIUM CHLORIDE 1 GM TABLET PO SCH ×2 (09:31→16:09)
[2020-02-29 16:57] VITALS: BP 145/89
[2020-03-01] MEDS: AmLODIPine BESYLATE 5 MG TABLET PO SCH (08:29)
[2020-03-01] MEDS: OLANZapine 5 MG TABLET PO SCH ×2 (08:29→16:23)
[2020-03-01] MEDS: SODIUM CHLORIDE 1 GM TABLET PO SCH ×2 (08:29→16:23)
[2020-03-01 08:30] VITALS: BP 144/95
[2020-03-01 17:04] VITALS: BP 127/97
[2020-03-02] MEDS: OLANZapine 5 MG TABLET PO SCH ×2 (08:20→16:06)
[2020-03-02] MEDS: SODIUM CHLORIDE 1 GM TABLET PO SCH ×2 (08:20→16:06)
[2020-03-02] MEDS: AmLODIPine BESYLATE 5 MG TABLET PO SCH (08:20)
[2020-03-02 09:11] VITALS: BP 148/91
[2020-03-02 17:01] VITALS: BP 149/94
[2020-03-02] MEDS: ZOLPIDEM TARTRATE 10 MG TABLET PO PRN (21:14)
[2020-03-03] MEDS: SODIUM CHLORIDE 1 GM TABLET PO SCH ×2 (08:29→16:11)
[2020-03-03] MEDS: OLANZapine 5 MG TABLET PO SCH ×2 (08:29→16:11)
[2020-03-03] MEDS: AmLODIPine BESYLATE 5 MG TABLET PO SCH (08:29)
[2020-03-03 09:52] VITALS: BP 131/95
[2020-03-03 18:05] VITALS: BP 153/93
[2020-03-04 03:27] VITALS: BP 154/99
[2020-03-04 08:45] VITALS: BP 155/90
[2020-03-04] MEDS: SODIUM CHLORIDE 1 GM TABLET PO SCH (08:51)
[2020-03-04] MEDS: OLANZapine 5 MG TABLET PO SCH (08:51)
[2020-03-04] MEDS: AmLODIPine BESYLATE 5 MG TABLET PO SCH (08:51)
[2020-03-04 10:04] LABS: ANION GAP 8 mmol/L (8-16); CALCIUM, TOTAL 9.9 mg/dL (8.8-10.5); CARBON DIOXIDE 31 mmol/L (22-29); CHLORIDE 106 mmol/L (98-107); CREATININE 0.83 mg/dL (0.60-1.30); GLOMERULAR FILTR. RATE CALC > 60 mL/min (>60); GLUCOSE,RANDOM 115 mg/dL (70-110); POTASSIUM 4.3 mmol/L (3.5-5.1); SODIUM SERUM 145 mmol/L (136-145); UREA NITROGEN, BLOOD 11 mg/dL (7-18)
== END 2020-03-04 14:40 | disposition home or self-care (01) | DRG 885 ==
LOC: EMS 17:25 → 3EI 21:30
PROVIDERS: ADMIT Psychiatry & Neurology Psychiatry; ATTEND Psychiatry & Neurology Psychiatry
DX: F20.0 Paranoid schizophrenia (principal); K86.1 Other chronic pancreatitis; E87.1 Hypo-osmolality and hyponatremia; F17.210 Nicotine dependence, cigarettes, uncomplicated; K70.30 Alcoholic cirrhosis of liver without ascites; K21.9 Gastro-esophageal reflux disease without esophagitis; F41.9 Anxiety disorder, unspecified; F10.10 Alcohol abuse, uncomplicated; F19.10 Other psychoactive substance abuse, uncomplicated; K76.9 Liver disease, unspecified; F32.9 Major depressive disorder, single episode, unspecified; S39.91XA Unspecified injury of abdomen, initial encounter; X58.XXXA Exposure to other specified factors, initial encounter; Z59.0 Homelessness; I10 Essential (primary) hypertension; F15.10 Other stimulant abuse, uncomplicated; F12.10 Cannabis abuse, uncomplicated; Y90.0 Blood alcohol level of less than 20 mg/100 ml
CPT/HCPCS: 83036; 84443; G0480

== ENCOUNTER 2020-03-26 16:12 | Emergency (ER) | payer MEDICAID, OTHER ==
[~2020-03-26] VITALS: Ht 170.2 cm; Wt 65.9 kg
[2020-03-26] MEDS ORDERED: PERTUSS(ACELL),DIPH,TET VAC/PF 0.5 ML VIAL IM ONE (17:00)
[2020-03-26 17:56] LABS: BASOPHILS % (AUTO) 0.8 % (0.0-2.0); EOSINOPHILS % (AUTO) 2.2 % (1.0-6.0); HEMATOCRIT 47.2 % (41-53); LYMPHOCYTES # (AUTO) 1.7 K/uL (1.0-4.8); LYMPHOCYTES % (AUTO) 22.1 % (22.0-44.0); MEAN CORPUSCULAR HEMOGLOBIN 33.6 pg (26.0-34.0); MEAN CORPUSCULAR VOLUME 99 fL (80-100); MONOCYTES # (AUTO) 0.6 K/uL (0.1-1.0); MONOCYTES % (AUTO) 7.3 % (2.0-9.0); NEUTROPHILS # (AUTO) 5.3 K/uL (1.8-7.7); NEUTROPHILS % (AUTO) 67.6 % (40.0-70.0); PLATELET COUNT (AUTO) 239 K/uL (150-450); RED BLOOD CELL COUNT(AUTO) 4.78 MIL/uL (4.50-5.90); RED CELL DISTRIBUTION WIDTH 13.9 % (11.5-14.5)
[2020-03-26 18:49] LABS: AMPHET/METH SCREEN,URINE POSITIVE (NEGATIVE); BARBITURATE SCREEN, URINE NEGATIVE (NEGATIVE); BENZODIAZEPINES SCREEN,URINE NEGATIVE (NEGATIVE); CANNABINOID SCREEN,URINE NEGATIVE (NEGATIVE); COCAINE SCREEN,URINE NEGATIVE (NEGATIVE); METHADONE SCREEN, URINE NEGATIVE (NEGATIVE); OPIATE SCREEN,URINE NEGATIVE (NEGATIVE)
[2020-03-26 18:51] LABS: PHENCYCLIDINE SCREEN,URINE NEGATIVE (NEGATIVE)
[2020-03-26 18:51] LABS: APPEARANCE,URINE CLEAR (CLEAR); GLUCOSE, URINE (UA) NEGATIVE (NEGATIVE); KETONES,URINE TRACE mg/dL (NEGATIVE); LEUKOCYTE ESTERASE ,URINE NEGATIVE (NEGATIVE); NITRATE,URINE NEGATIVE (NEGATIVE); OCCULT BLOOD,URINE NEGATIVE (NEGATIVE); PH,URINE 5.5 (5.0-8.0); PROTEIN,URINE TRACE (NEGATIVE)
[2020-03-26 18:59] LABS: ANION GAP 15 mmol/L (8-16); CALCIUM, TOTAL 9.7 mg/dL (8.8-10.5); CARBON DIOXIDE 21 mmol/L (22-29); CHLORIDE 101 mmol/L (98-107); CREATININE 0.74 mg/dL (0.60-1.30); GLOMERULAR FILTR. RATE CALC > 60 mL/min (>60); GLUCOSE,RANDOM 102 mg/dL (70-110); POTASSIUM 3.5 mmol/L (3.5-5.1); SODIUM SERUM 137 mmol/L (136-145); UREA NITROGEN, BLOOD 9 mg/dL (7-18)
[2020-03-26 19:01] LABS: BILIRUBIN,URINE PRELIM. POSITIVE (NEGATIVE)
[2020-03-26 19:04] LABS: RBC,URINE None Seen /HPF (0-2); WBC,URINE 0-2 /HPF (0-5)
[2020-03-26 19:04] LABS: ALANINE AMINOTRANSFERASE 28 U/L (12-78); ALKALINE PHOSPHATASE 106 U/L (46-116); ASPARTATE AMINOTRANSFERASE 41 U/L (15-37); BILIRUBIN,TOTAL 1.4 mg/dL (0.1-1.0); TOTAL PROTEIN, SERUM 8.2 g/dL (6.4-8.2)
[2020-03-26 19:05] LABS: BACTERIA,URINE Rare /HPF (None Seen); SQUAMOUS EPITHELIAL CELL,UR Few /LPF (None Seen)
[2020-03-26 19:40] VITALS: BP 138/87
== END 2020-03-26 20:05 | disposition home or self-care (01) ==
LOC: EMS 16:12
DX: S61.512A Laceration without foreign body of left wrist, initial encounter (principal); R94.31 Abnormal electrocardiogram [ECG] [EKG]; F15.10 Other stimulant abuse, uncomplicated; Y29.XXXA Contact with blunt object, undetermined intent, initial encounter; Y93.89 Activity, other specified; Y92.89 Other specified places as the place of occurrence of the external cause; Y99.8 Other external cause status
CPT/HCPCS: 36415; 80053; 80307; 81001; 85025; 93005; 99285; G0480; 90715

== ENCOUNTER 2021-01-02 07:46 | Emergency (ER) | payer OTHER ==
[~2021-01-02] VITALS: Ht 167.6 cm; Wt 75.0 kg
[2021-01-02 08:33] LABS: BASOPHILS % (AUTO) 0.7 % (0.0-2.0); EOSINOPHILS % (AUTO) 0.4 % (1.0-6.0); HEMATOCRIT 45.8 % (41-53); HEMOGLOBIN 15.5 g/dL (13.5-17.5); LYMPHOCYTES # (AUTO) 1.1 K/uL (1.0-4.8); LYMPHOCYTES % (AUTO) 10.6 % (22.0-44.0); MEAN CORPUSCULAR HEMOGLOBIN 32.9 pg (26.0-34.0); MEAN CORPUSCULAR HGB CONC 33.8 G/dL (31.0-37.0); MEAN CORPUSCULAR VOLUME 97 fL (80-100); MONOCYTES # (AUTO) 0.8 K/uL (0.1-1.0); NEUTROPHILS # (AUTO) 8.4 K/uL (1.8-7.7); NEUTROPHILS % (AUTO) 80.3 % (40.0-70.0); PLATELET COUNT (AUTO) 236 K/uL (150-450); RED BLOOD CELL COUNT(AUTO) 4.72 MIL/uL (4.50-5.90); RED CELL DISTRIBUTION WIDTH 14.3 % (11.5-14.5)
[2021-01-02 08:53] LABS: ANION GAP 19 mmol/L (8-16); CALCIUM, TOTAL 9.4 mg/dL (8.8-10.5); CARBON DIOXIDE 20 mmol/L (22-29); CHLORIDE 93 mmol/L (98-107); CREATININE 0.71 mg/dL (0.60-1.30); GLOMERULAR FILTR. RATE CALC > 60 mL/min (>60); GLUCOSE,RANDOM 76 mg/dL (70-110); POTASSIUM 4.1 mmol/L (3.5-5.1); SODIUM SERUM 132 mmol/L (136-145); UREA NITROGEN, BLOOD 9 mg/dL (7-18)
[2021-01-02 08:59] LABS: ALANINE AMINOTRANSFERASE 77 U/L (12-78); ALBUMIN 4.4 g/dL (3.4-5.0); ALKALINE PHOSPHATASE 118 U/L (46-116); ASPARTATE AMINOTRANSFERASE 131 U/L (15-37); BILIRUBIN,TOTAL 1.7 mg/dL (0.1-1.0); LIPASE 109 U/L (73-393); TOTAL PROTEIN, SERUM 8.1 g/dL (6.4-8.2)
[2021-01-02] MEDS ORDERED: IBUPROFEN 600 MG TABLET PO ONE (09:00)
[2021-01-02 10:36] VITALS: BP 160/97
[2021-01-02 16:22] LABS: AMPHET/METH SCREEN,URINE POSITIVE (NEGATIVE); BARBITURATE SCREEN, URINE NEGATIVE (NEGATIVE); BENZODIAZEPINES SCREEN,URINE NEGATIVE (NEGATIVE); CANNABINOID SCREEN,URINE NEGATIVE (NEGATIVE); COCAINE SCREEN,URINE NEGATIVE (NEGATIVE); METHADONE SCREEN, URINE NEGATIVE (NEGATIVE); OPIATE SCREEN,URINE NEGATIVE (NEGATIVE)
[2021-01-02 16:24] LABS: PHENCYCLIDINE SCREEN,URINE NEGATIVE (NEGATIVE)
== END 2021-01-02 15:30 | disposition home or self-care (01) ==
LOC: EMS 07:46
DX: F20.0 Paranoid schizophrenia (principal); F10.129 Alcohol abuse with intoxication, unspecified; F15.10 Other stimulant abuse, uncomplicated; K74.60 Unspecified cirrhosis of liver
CPT/HCPCS: 36415; 80053; 80307; 83690; 85025; 99285; G0480